=== PATIENT | female | born 1945 | race Caucasian/White ===

== ENCOUNTER 2020-04-20 11:43 | Outpatient (REF) | payer MEDICARE, SELFPAY | END 2020-04-20 11:44 | disposition home or self-care (01) | LOC: HO.LAB 11:43 | PROVIDERS: PCP Internal Medicine; Visit Provider Internal Medicine | DX: Z20.828 Contact with and (suspected) exposure to other viral communicable diseases (principal) | CPT/HCPCS: 87635 ==

== ENCOUNTER 2020-12-17 09:28 | Outpatient (REF) | payer MEDICARE, SELFPAY ==
[2020-12-17 10:47] LABS: MANUAL DIFF FLAG NO
[2020-12-17 10:53] LABS: Basophils Absolute Auto 0.1 X10*3/uL (0.0-0.2); Basophils Percent Auto 0.7 % (0-2); Eosinophils Absolute Auto 0.3 X10*3/uL (0.0-0.4); Eosinophils Percent Auto 3.3 % (0-4); Hematocrit 45.8 % (37-47); Hemoglobin 14.6 g/dl (12.0-16.0); Imm Gran Abs Auto 0.03 X10*3/uL (0.00-0.03); Imm Gran Pct Auto 0.4 % (0.0-0.4); Lymphocytes Absolute Auto 1.5 X10*3/uL (1.2-4.9); Mean Corpuscular HGB Conc 31.9 g/dl (31.0-35.0); Mean Corpuscular Hemoglobin 28.4 pg (27.0-33.0); Mean Corpuscular Volume 89.1 fL (80-98); Mean Platelet Volume 10.3 fL (9.4-12.3); Monocytes Absolute Auto 0.8 X10*3/uL (0.1-1.2); Monocytes Percent Auto 9.8 % (2-11); Neutrophils Absolute Auto 5.6 X10*3/uL (2.0-8.3); Neutrophils Percent Auto 67.8 % (45-73); Platelet Count 285 X10*3/uL (160-400); Red Blood Count 5.14 X10*6/uL (4.20-5.50); Red Cell Distribution Width 13.5 % (11.0-16.0); White Blood Count 8.2 X10*3/uL (4.8-10.8)
[2020-12-17 11:10] LABS: Glucose Urine UA NEG (NEG); Leukocyte Esterase Urine NEG (NEG); Nitrite Urine NEG (NEG); PH 6.5 (5.0-8.0); Urine Blood 3+ (NEG); Urine Ketones NEG (NEG); Urine Protein 1+ MG/DL (NEG-TRACE)
[2020-12-17 11:15] LABS: Appearance Urine HAZY; Color Urine AMBER
[2020-12-17 11:21] LABS: Alanine Aminotransferase 19 U/L (0-31); Albumin Level 3.7 g/dL (3.5-5.0); Alkaline Phosphatase 94 U/L (39-117); Anion Gap 10 (12-20); Aspartate Amino Transferase 17 U/L (5-31); Bilirubin Total 0.5 mg/dL (0.0-1.0); Blood Urea Nitrogen 19 mg/dL (9-16); Calcium 8.9 mg/dL (8.4-10.2); Carbon Dioxide 33 mmol/L (22-29); Chloride 103 mmol/L (96-108); Cholesterol 152 mg/dL; Estimated Glomerular Filt Rate > 60; Glucose Fasting 101 mg/dL (60-99); HDL Cholesterol 50 mg/dL; LDL Cholesterol Calculated 86 mg/dl; Potassium 4.3 mmol/L (3.3-5.1); Sodium 142 mmol/L (135-145); Total Protein 6.6 g/dL (6.5-8.0); Triglycerides 80 mg/dL
[2020-12-17 12:05] LABS: Bacteria Urine 4+ /LPF; RBC Urine 50-75 /HPF (0); Renal Epithelial Cells Urine 1+ /LPF; Squamous Epithelial Cell Urine 2+ /LPF
== END 2020-12-17 09:29 | disposition home or self-care (01) ==
LOC: HO.WFDLDS 09:28
PROVIDERS: Visit Provider Internal Medicine
DX: Z13.89 Encounter for screening for other disorder (principal)
CPT/HCPCS: 36415; 80053; 80061; 81001; 85025

== ENCOUNTER 2020-12-20 07:42 | Outpatient (REF) | payer MEDICARE, SELFPAY ==
[2020-12-20 10:38] LABS: Urine Cytology See Pathology rpt
== END 2020-12-20 07:43 | disposition home or self-care (01) ==
LOC: HO.WFDLDS 07:42
PROVIDERS: Visit Provider Internal Medicine
DX: E78.00 Pure hypercholesterolemia, unspecified (principal); N95.2 Postmenopausal atrophic vaginitis; R31.9 Hematuria, unspecified
CPT/HCPCS: 88112

== ENCOUNTER → 2021-01-03 13:16 | Outpatient (BNVA) | payer MEDICARE, SELFPAY | PROVIDERS: PCP Internal Medicine; Visit Provider Urology | DX: C67.9 Malignant neoplasm of bladder, unspecified (principal) | CPT/HCPCS: Q3014 ==

== ENCOUNTER 2021-01-28 09:04 | Day surgery (SDC) | payer MEDICARE, SELFPAY ==
--- NOTE | 2021-01-25 10:04 | HO.ANESPROP2 ---
Documented by User: Lacey Nithya 01/25/21 10:07 HPI - Anesthesia Eval Consult details Narrative: 75yo F for TUR Bladder Tumor with Gemcitabine Installation & Bilateral Retrograde No medical hx available from Urology office. Unable to reach patient by phone. [facility] Active Problems Active Problems: All Active Problems (Updated 01/17/21 @ 14:00 by Vivek Zamudio MD) UTI (urinary tract infection), bacterial (Acute) Bladder cancer (Acute) Social History Social History Patient Tobacco Use Status: Former Tobacco user Use of substances other than those prescribed or required for medical reasons: No Have you been hit, kicked, punched, or otherwise hurt by someone within the past year? If so, by whom?: No Are you DNR?: No Advance Directives: No Advance Directives Information Provided: Yes Meds Allergies Allergy/AdvReac Type Severity Reaction Status Date / Time No Known Allergies Allergy Verified 01/03/21 13:28 Exam Exam Date and Time: January 25, 2021 1004 Pertinent Lab Results Pertinent Lab Results: Laboratory Tests 12/17/20 12/17/20 09:45 09:45 WBC 8.2 Hgb 14.6 Hct 45.8 Plt Count 285 Sodium 142 Potassium 4.3 Chloride 103 Carbon Dioxide 33 H BUN 19 H Creatinine 0.80 Documented by User: Natacha Aguilar 01/28/21 10:33 [facility] Social History Social History Patient Tobacco Use Status: Former Tobacco user Use of substances other than those prescribed or required for medical reasons: No Have you been hit, kicked, punched, or otherwise hurt by someone within the past year? If so, by whom?: No Are you DNR?: No Advance Directives: No Advance Directives Information Provided: Yes Meds Allergies Allergy/AdvReac Type Severity Reaction Status Date / Time No Known Allergies Allergy Verified 01/03/21 13:28 Exam Airway Mallampati Class: II TM Dist: >3cm Neck ROM: Full Assessment and Plan Assessment Anesthesia Assessment: Anesthesia Plan Discussed and Chart Reviewed Final Anesthetic Review NPO: Yes ASA Class: III Final Preanesthetic Review: No Changes in Pt Med Stat, Meds/Allgs Chart Reviewed, Consent Obtained/Reviewed and Anes Risks/Benef Reviewed Patient Risk: Intermediate Procedure Risk: Low Assessment/Block/Sedation in SS: Assess/Block/Sedation-SS Anesthetic Plan Anesthetic Plan: GA Disposition: Standard PACU
[2021-01-28] VITALS (13 sets, daily range): BP systolic 113–165; BP diastolic 57–96; PULSE 61–85; RESP 14–18; TEMP 36.1–36.7; O2SAT 92–98; BMI 42.7
--- NOTE | ~2021-01-28 | FL_ITS ---
EXAMINATION: XR FLUOROSCOPY WITH IMAGES CLINICAL INFORMATION: TURBT. COMPARISON: None. TECHNIQUE: Fluoroscopy performed by Dr. Vivek Zamudio Fluoroscopy time: 0.3 minutes DAP: 6.85 mGycm2 Images: 2 FINDINGS: There is contrast opacifying bilateral pelvicalyceal systems. There is a small filling defects seen at left UVJ likely gas bubbles or small stones. No additional images obtained. FL/FL guidance in OR IMPRESSION: Fluoroscopy was provided to Dr. Vivek Zamudio during retrograde pyelogram exam.
[2021-01-28] MEDS: Lactated Ringers 1,000 ML 50 ML IVCONT (10:34)
[2021-01-28] MEDS: levoFLOXacin 500 MG TABLET PO (10:38)
--- NOTE | 2021-01-28 10:49 | MHC.SHP ---
Pre-Procedural Eval Section A Date of Service: 01/28/21 Section B Chief Complaint: malignant neoplasm of bladder Details of Present Illness: Bladder cancer here for TURBT with bilateral retrograde in gemcitabine installation Relevant Family History (Specify if Yes): No Relevant Social History: None Present Medications: see Short Stay Collaborative assessment Medical History: No relevant PMH History of Previous Operations: No relevant previous surgery Allergies: Allergies Allergy/AdvReac Type Severity Reaction Status Date / Time No Known Allergies Allergy Verified 01/03/21 13:28 Plan I have reviewed the history and physical and performed a pertinent physical examination on my patient. No changes have occurred unless specified.
--- NOTE | 2021-01-28 12:37 | P.OP_ITS ---
Operative Note Operative Note Date of Service: 01/28/21 Narrative: PreOperative Diagnosis: bladder cancer Post Operative Diagnosis: bladder cancer Procedure: TURBT large and Gemcitabine installation, with bilateral retrograde examination Surgeon: Dr Vivek Zamudio Anesthesia: general Indications for procedure: Is a 75-year-old female. Presented after having an episode hematuria. PCP had perform CT scan which showed a mass on the right wall of the bladder with no hydronephrosis. Scheduled for TURBT with gemcitabine induction without cystoscopy in the office Procedure: After informed consent was verified the patient was brought to the operating room and placed in a supine position. Anesthesia was administered per protocol. The patient was placed in a modified dorsal lithotomy position and prepped and draped in a sterile fashion. Safety pause time-out was performed. Antibiotics were confirmed. A 22 Australian cystoscope inserted per urethra. The bladder was examined in its entirety. Both ureteric orifices normal position. The tumor was present on the right side wall extending from 1 cm above ureteric orifice up to the 12 o'clock position. It broadly covered most of the right sidewall. A 26 Australian continuous flow resectoscope was inserted per urethra. The visual obturator was used in order to minimize potential for urethral damage. Using the bipolar resectoscope and the Olympus narrow band imaging camera the lesion was resected. Edges were fulgurated. She had a sciatic nerve reflex during the 1st part of the procedure so underwent paralytic anesthetic. The lesion was approximately 5 cm in nature At completion of resection the 22 Australian cystoscope was placed. Bilateral retrogrades were performed. No filling defect was seen. At the completion of the procedure the bladder was irrigated. The cystoscope was removed. A [address] Muir catheter was inserted into the bladder. 10 cc was placed in the balloon. 2 g of gemcitabine in 100 cc of normal saline was instilled into the bladder. the flow from the catheter was left clamped. The inflow to the catheter was attached to a 3 L normal saline bag. The patient tolerated the procedure well. They were extubated in the operating room and transferred in stable condition to the recovery area. Gemcitabine will remain in the bladder for 1 hour. At the completion of 1 hour the clamp will be removed. The gemcitabine will be allowed to egress to the urine collection bag. The 3 L bag of normal saline will be run at maximum rate through the bladder in order to dilute any residual gemcitabine. The sciatic reflex did mean that there was a deeper part of the resection on the right sidewall into fat underlying the bladder. Decision was made to leave the Muir catheter for 2-3 days. Pathology: Bladder tumor Drains: Muir catheter
[2021-01-28] MEDS: fentaNYL citrate/PF 100 MCG/2 ML VIAL 50 MCG IVPUSH ×2 (12:47→12:58)
== END 2021-01-28 14:38 | disposition home or self-care (01) ==
PROVIDERS: PCP Internal Medicine; Visit Provider Urology
PROC: 0TBB8ZZ Excision of Bladder, Via Natural or Artificial Opening Endoscopic (ICD-10-PCS; CPT 52235; principal; 2021-01-28 11:40)
DX: C67.9 Malignant neoplasm of bladder, unspecified (principal); R31.0 Gross hematuria; Z87.891 Personal history of nicotine dependence
CPT/HCPCS: 52235; 51720; 88307; J0330; J1100; J2250; J2405; J3010; J9201; Q9967

== ENCOUNTER → 2021-01-30 13:01 | Outpatient (BNVA) | payer MEDICARE, SELFPAY | PROVIDERS: PCP Internal Medicine; Visit Provider Urology | DX: Z48.3 Aftercare following surgery for neoplasm (principal); C67.9 Malignant neoplasm of bladder, unspecified; N28.89 Other specified disorders of kidney and ureter | CPT/HCPCS: 99212 ==

== ENCOUNTER → 2021-02-06 14:45 | Outpatient (BNVA) | payer MEDICARE, SELFPAY | PROVIDERS: PCP Internal Medicine; Visit Provider Urology | CPT/HCPCS: Q3014 ==

== ENCOUNTER → 2021-03-27 11:46 | Outpatient (BNVA) | payer MEDICARE, SELFPAY | PROVIDERS: PCP Internal Medicine; Visit Provider Urology ==

== ENCOUNTER → 2021-03-28 10:33 | Outpatient (BNVA) | payer MEDICARE, SELFPAY | PROVIDERS: PCP Internal Medicine; Visit Provider Urology | DX: C67.9 Malignant neoplasm of bladder, unspecified (principal); N28.89 Other specified disorders of kidney and ureter | CPT/HCPCS: Q3014 ==

== ENCOUNTER 2021-04-18 10:35 | Outpatient (REF) | payer MEDICARE, SELFPAY ==
[2021-04-18 14:10] LABS: Blood Urea Nitrogen 16 mg/dL (9-16); Estimated Glomerular Filt Rate > 60
== END 2021-04-18 10:36 | disposition home or self-care (01) ==
LOC: HO.WFDLDS 10:35
PROVIDERS: Visit Provider Urology
DX: R39.15 Urgency of urination (principal); N28.89 Other specified disorders of kidney and ureter
CPT/HCPCS: 36415; 82565; 84520

== ENCOUNTER 2021-04-19 08:08 | Outpatient (REF) | payer MEDICARE, SELFPAY | END 2021-04-19 08:09 | disposition home or self-care (01) | LOC: HO.MRI 08:08 | PROVIDERS: PCP Internal Medicine; Visit Provider Urology | DX: Z13.89 Encounter for screening for other disorder (principal) ==

== ENCOUNTER 2021-04-22 06:10 | Day surgery (SDC) | payer MEDICARE, SELFPAY ==
[2021-04-12 19:27] VITALS: BMI 42.5
--- NOTE | 2021-04-18 13:22 | P.CONAN_ITS ---
Documented by User: Lacey Barriga NP 04/18/21 13:24 HPI - Anesthesia Eval Consult details Narrative: 75yo F for TUR Bladder Tumor s/p TURBT 01/2021 with GA-LMA 4 PMFSH Active Problems Active Problems: All Active Problems (Updated 04/12/21 @ 19:24 by Heather Baeza RN) Bladder cancer (Acute) UTI (urinary tract infection), bacterial (Acute) Renal mass (Acute) Past Medical History Medical History (Updated 04/22/21 @ 07:20 by Estella Mesa MD) Asthma High cholesterol Hypertension Mammary abscess Obesity Sleep apnea Family History Family History Father Prostate cancer Myocardial infarction Mother Colon cancer Uterine cancer Surgical History Surgical History H/O hernia repair H/O: hysterectomy History of breast surgery Hx of appendectomy Social History Social History Patient Tobacco Use Status: Former Tobacco user Tobacco use type: Cigarette Years Smoked: 20 Use of substances other than those prescribed or required for medical reasons: No Are you DNR?: No Advance Directives: No Advance Directives Information Provided: No Advance Directives on File: No Recently lost weight without trying: No Nutrition Risks: No Nutritional Risk Patient : No Meds Allergies Allergy/AdvReac Type Severity Reaction Status Date / Time Penicillins AdvReac Mild hives Verified 04/16/21 08:24 Home Medications Medication Instructions Recorded Confirmed Last Taken Type fluticasone furoate 200 1 ea INHALATION DAILY PRN 02/06/21 04/12/21 Unknown History mcg-vilanterol 25 mcg/dose inhalation powder (Breo Ellipta) pravastatin 40 mg tablet 40 mg PO BEDTIME 02/06/21 04/12/21 Unknown History valsartan 320 1 tab PO DAILY 02/06/21 04/22/21 04/22/21 05:00 History mg-hydrochlorothiazide 25 mg tablet Vitamin D3 1 tab PO DAILY 03/05/21 04/12/21 Unknown History Exam Exam Date and Time: April 18, 2021 1322 Height,Weight and Vital Signs: Height 5 ft 5 in Weight 116 kg Pertinent Lab Results Pertinent Lab Results: Laboratory Tests ? 12/17/20 12/17/20 ? 09:45 09:45 WBC ?8.2 ? Hgb ?14.6 ? Hct ?45.8 ? Plt Count ?285 ? Sodium ? ?142 Potassium ? ?4.3 Chloride ? ?103 Carbon Dioxide ? ?33 H BUN ? ?19 H Creatinine ? ?0.80 Assessment and Plan Assessment Anesthesia Assessment: Chart Reviewed Documented by User: Estella Mesa MD 04/22/21 08:25 [facility] Past Medical History Medical History (Updated 04/22/21 @ 07:20 by Estella Mesa MD) Asthma High cholesterol Hypertension Mammary abscess Obesity Sleep apnea Family History Family History Father Prostate cancer Myocardial infarction Mother Colon cancer Uterine cancer Family history of problems with anesthesia: No Surgical History Surgical History H/O hernia repair H/O: hysterectomy History of breast surgery Hx of appendectomy History of Problems with Anesthesia: No Social History Social History Patient Tobacco Use Status: Former Tobacco user Tobacco use type: Cigarette Years Smoked: 20 Use of substances other than those prescribed or required for medical reasons: No Are you DNR?: No Advance Directives: No Advance Directives Information Provided: No Advance Directives on File: No Recently lost weight without trying: No Nutrition Risks: No Nutritional Risk Patient : No Meds Allergies Allergy/AdvReac Type Severity Reaction Status Date / Time Penicillins AdvReac Mild hives Verified 04/16/21 08:24 Home Medications Medication Instructions Recorded Confirmed Last Taken Type fluticasone furoate 200 1 ea INHALATION DAILY PRN 02/06/21 04/12/21 Unknown History mcg-vilanterol 25 mcg/dose inhalation powder (Breo Ellipta) pravastatin 40 mg tablet 40 mg PO BEDTIME 02/06/21 04/12/21 Unknown History valsartan 320 1 tab PO DAILY 02/06/21 04/22/21 04/22/21 05:00 History mg-hydrochlorothiazide 25 mg tablet Vitamin D3 1 tab PO DAILY 03/05/21 04/12/21 Unknown History Exam Height,Weight and Vital Signs: Height 5 ft 5 in Weight 116 kg Vital Signs: T 97.3 BP 151/65 HR 68 RR 20 SpO2 94% Airway Mallampati Class: III TM Dist: >3cm Neck ROM: Full Loose/Missing/Broken Teeth: No (Dental implant) Heart: RRR Lungs: CTAB Assessment and Plan Assessment Anesthesia Assessment: Anesthesia Plan Discussed Final Anesthetic Review Family History of Problems with Anesthesia: No History of Problems with Anesthesia: No NPO: Yes ASA Class: III Final Preanesthetic Review: No Changes in Pt Med Stat, Meds/Allgs Chart Reviewed, Consent Obtained/Reviewed and Anes Risks/Benef Reviewed Patient Risk: Intermediate Procedure Risk: Low Assessment/Block/Sedation in SS: Assess/Block/Sedation-SS Anesthetic Plan Anesthetic Plan: GA Disposition: Standard PACU
[2021-04-22] VITALS (7 sets, daily range): BP systolic 103–151; BP diastolic 42–68; PULSE 63–76; RESP 16–20; TEMP 36.3–36.8; O2SAT 93–99
[2021-04-22] MEDS: Lactated Ringers 1,000 ML 100 ML IVCONT (06:59)
--- NOTE | 2021-04-22 07:27 | MHC.SHP ---
Pre-Procedural Eval Section A Date of Service: 04/22/21 Section B Chief Complaint: malignant neoplasm of bladder Details of Present Illness: prior TURBT - restaging after immunotherapy induction Relevant Social History: None Present Medications: see Short Stay Collaborative assessment Medical History: Significant History History of Previous Operations: Relevant previous surgery/procedure and date(s) Allergies: Allergies Allergy/AdvReac Type Severity Reaction Status Date / Time Penicillins AdvReac Mild hives Verified 04/16/21 08:24 Review of Systems Sugical H&P ROS: Negative: Constitution, Cardiovascular, Respiratory, Neurological, Psychiatric, Hem-Onc, Allergic/Immunologic, Gastrointestinal, Genitourinary, Musculoskeletal, Integumentary, Endocrine and Eyes/Ears/Nose/Throat Exam Surgical H&P Exam: Normal: HEENT, Normal: Heart, Normal: Lungs, Normal: Extremities, Normal: Abdomen, Normal: Skin and Normal: Neurological Plan Diagnosis/Plan: Unchanged (cysto, bladder biopsy and fulgeration) I have reviewed the history and physical and performed a pertinent physical examination on my patient. No changes have occurred unless specified.
[2021-04-22] MEDS: levoFLOXacin 500 MG TABLET PO (07:29)
--- NOTE | 2021-04-22 08:06 | W.PM.OPN ---
Operative Note Operative Note Date of Service: 04/22/21 Narrative: PreOperative Diagnosis: Bladder cancer Post Operative Diagnosis: Bladder cancer Procedure: Cystoscopy bladder biopsy and fulguration Surgeon: Dr Vivek Zamudio Anesthesia: General Indications for procedure: High-grade bladder cancer February 2021. Did induction immunotherapy. Here for restaging under anesthesia. Procedure: After informed consent was verified the patient was brought to the operating room and placed in a supine position. Anesthesia was administered per protocol. Patient was placed in modified dorsal lithotomy position and prepped and draped in a sterile fashion. Safety pause time-out was performed. Cystoscopy was performed. Bladder appeared to have a good response to immunotherapy. Bladder biopsies around the 2 prior areas of resection with taken. Fulguration was performed. Bladder was emptied. She tolerated procedure well was extubated in operating room transferred in stable condition to the recovery area. Pathology: Pathology bladder biopsy Drains: None
[2021-04-22] MEDS: Phenazopyridine HCL 100 MG TABLET PO (08:48)
[2021-04-22] MEDS: Acetaminophen 325 MG TABLET 650 MG PO (10:05)
--- NOTE | 2021-04-22 10:40 | PC.NURSE ---
COMPUTERS DOWN. SOME WRITTEN INSTRUCTIONS GIVEN TO PATIENT BY HAND TURNER.
== END 2021-04-22 10:25 | disposition home or self-care (01) ==
PROVIDERS: PCP Internal Medicine; Visit Provider Urology
PROC: 0TBB8ZZ Excision of Bladder, Via Natural or Artificial Opening Endoscopic (ICD-10-PCS; CPT 52224; principal; 2021-04-22 07:30)
DX: C67.9 Malignant neoplasm of bladder, unspecified (principal); N28.89 Other specified disorders of kidney and ureter; N30.90 Cystitis, unspecified without hematuria; R31.0 Gross hematuria; R39.15 Urgency of urination; Z88.0 Allergy status to penicillin; J45.909 Unspecified asthma, uncomplicated; I10 Essential (primary) hypertension; Z79.51 Long term (current) use of inhaled steroids; Z79.899 Other long term (current) drug therapy; Z87.891 Personal history of nicotine dependence
CPT/HCPCS: 52224; 88305; 88307; J1100; J2250; J2405; J3010

== ENCOUNTER 2021-05-07 09:44 | Outpatient (REF) | payer MEDICARE, SELFPAY ==
[2021-05-07 17:28] LABS: Urine Cytology See Pathology rpt
== END 2021-05-07 09:45 | disposition home or self-care (01) ==
LOC: HO.LAB 09:44
PROVIDERS: PCP Internal Medicine; Visit Provider Urology
DX: C67.9 Malignant neoplasm of bladder, unspecified (principal); N39.0 Urinary tract infection, site not specified; B96.89 Other specified bacterial agents as the cause of diseases classified elsewhere; N28.89 Other specified disorders of kidney and ureter
CPT/HCPCS: 88112; 99212

== ENCOUNTER 2021-06-17 09:42 | Outpatient (REF) | payer MEDICARE, SELFPAY ==
[2021-06-17 10:06] LABS: MANUAL DIFF FLAG NO
[2021-06-17 10:07] LABS: Basophils Percent Auto 0.4 % (0-2); Eosinophils Absolute Auto 0.2 X10*3/uL (0.0-0.4); Eosinophils Percent Auto 2.5 % (0-4); Hematocrit 45.2 % (37.0-47.0); Hemoglobin 14.5 g/dl (12.0-16.0); Imm Gran Abs Auto 0.02 X10*3/uL (0.00-0.03); Imm Gran Pct Auto 0.3 % (0.0-0.4); Lymphocytes Absolute Auto 1.2 X10*3/uL (1.2-4.9); Lymphocytes Percent Auto 16.4 % (20-40); Mean Corpuscular HGB Conc 32.1 g/dl (31.0-35.0); Mean Corpuscular Hemoglobin 28.6 pg (27.0-33.0); Mean Corpuscular Volume 89.2 fL (80.0-98.0); Mean Platelet Volume 9.7 fL (9.4-12.3); Monocytes Absolute Auto 0.8 X10*3/uL (0.1-1.2); Monocytes Percent Auto 10.3 % (2-11); Neutrophils Absolute Auto 5.3 x10*3/uL (2.0-8.3); Neutrophils Percent Auto 70.1 % (45-73); Platelet Count 245 X10*3/uL (160-400); Red Blood Count 5.07 X10*6/uL (4.20-5.50); Red Cell Distribution Width 13.1 % (11.0-16.0); White Blood Count 7.5 X10*3/uL (4.8-10.8)
[2021-06-17 10:43] LABS: Alanine Aminotransferase 22 U/L (0-31); Albumin Level 3.7 g/dL (3.5-5.0); Alkaline Phosphatase 91 U/L (39-117); Anion Gap 11 (12-20); Aspartate Amino Transferase 20 U/L (5-31); Bilirubin Total 0.2 mg/dL (0.0-1.0); Blood Urea Nitrogen 15 mg/dL (9-16); Calcium 9.5 mg/dL (8.4-10.2); Carbon Dioxide 31 mmol/L (22-29); Chloride 102 mmol/L (96-108); Cholesterol 185 mg/dL; Estimated Glomerular Filt Rate > 60; Glucose Fasting 93 mg/dL (60-99); HDL Cholesterol 52 mg/dL; LDL Cholesterol Calculated 104 mg/dl; Potassium 4.1 mmol/L (3.3-5.1); Sodium 140 mmol/L (135-145); Total Protein 6.8 g/dL (6.5-8.0); Triglycerides 148 mg/dL
[2021-06-17 11:04] LABS: Thyroid Stimulating Hormone 3.05 uIU/mL (0.32-4.0)
== END 2021-06-17 09:43 | disposition home or self-care (01) ==
LOC: HO.10HDL 09:42
PROVIDERS: Visit Provider Internal Medicine
DX: E78.00 Pure hypercholesterolemia, unspecified (principal); G47.33 Obstructive sleep apnea (adult) (pediatric); I10 Essential (primary) hypertension; Z86.010 Personal history of colon polyps
CPT/HCPCS: 36415; 80053; 80061; 84443; 85025

== ENCOUNTER 2021-08-02 09:58 | Outpatient (REF) | payer MEDICARE, SELFPAY ==
[2021-08-05 11:37] LABS: Urine Cytology See Pathology rpt
== END 2021-08-02 09:59 | disposition home or self-care (01) ==
LOC: HO.LAB 09:58
PROVIDERS: Visit Provider Urology
DX: C67.9 Malignant neoplasm of bladder, unspecified (principal)
CPT/HCPCS: 52000; 88112; 99212

== ENCOUNTER 2021-10-31 09:06 | Outpatient (REF) | payer MEDICARE, SELFPAY ==
[2021-10-31 12:24] LABS: Urine Cytology See Pathology rpt
== END 2021-10-31 09:07 | disposition home or self-care (01) ==
LOC: HO.LAB 09:06
PROVIDERS: PCP Internal Medicine; Visit Provider Urology
DX: C67.9 Malignant neoplasm of bladder, unspecified (principal); Z87.891 Personal history of nicotine dependence
CPT/HCPCS: 52000; 88112; 99212

== ENCOUNTER 2022-01-30 09:02 | Outpatient (REF) | payer MEDICARE, SELFPAY ==
[2022-01-30 16:36] LABS: Urine Cytology See Pathology rpt
== END 2022-01-30 09:03 | disposition home or self-care (01) ==
LOC: HO.LAB 09:02
PROVIDERS: Visit Provider Urology
DX: C67.9 Malignant neoplasm of bladder, unspecified (principal)
CPT/HCPCS: 52000; 88112; 99212

== ENCOUNTER 2022-02-10 09:50 | Outpatient (REF) | payer MEDICARE, SELFPAY ==
[2022-02-10 10:21] LABS: MANUAL DIFF FLAG NO
[2022-02-10 10:34] LABS: Basophils Percent Auto 0.5 % (0-2); Eosinophils Absolute Auto 0.2 X10*3/uL (0.0-0.4); Eosinophils Percent Auto 3.3 % (0-4); Hematocrit 44.3 % (37.0-47.0); Hemoglobin 14.2 g/dl (12.0-16.0); Imm Gran Abs Auto 0.02 X10*3/uL (0.00-0.03); Imm Gran Pct Auto 0.3 % (0.0-0.4); Lymphocytes Absolute Auto 1.2 X10*3/uL (1.2-4.9); Lymphocytes Percent Auto 19.5 % (20-40); Mean Corpuscular HGB Conc 32.1 g/dl (31.0-35.0); Mean Corpuscular Hemoglobin 28.1 pg (27.0-33.0); Mean Corpuscular Volume 87.7 fL (80.0-98.0); Mean Platelet Volume 9.7 fL (9.4-12.3); Monocytes Absolute Auto 0.5 X10*3/uL (0.1-1.2); Monocytes Percent Auto 8.3 % (2-11); Neutrophils Absolute Auto 4.2 x10*3/uL (2.0-8.3); Neutrophils Percent Auto 68.1 % (45-73); Platelet Count 242 X10*3/uL (160-400); Red Blood Count 5.05 X10*6/uL (4.20-5.50); Red Cell Distribution Width 13.8 % (11.0-16.0); White Blood Count 6.1 X10*3/uL (4.8-10.8)
[2022-02-10 11:22] LABS: Alanine Aminotransferase 15 U/L (0-31); Albumin Level 3.6 g/dL (3.5-5.0); Alkaline Phosphatase 96 U/L (39-117); Anion Gap 13 (12-20); Aspartate Amino Transferase 16 U/L (5-31); Bilirubin Total 0.5 mg/dL (0.0-1.0); Blood Urea Nitrogen 17 mg/dL (9-16); Calcium 8.7 mg/dL (8.4-10.2); Carbon Dioxide 31 mmol/L (22-29); Chloride 102 mmol/L (96-108); Cholesterol 187 mg/dL; Estimated Glomerular Filt Rate > 60; Glucose Fasting 117 mg/dL (60-99); HDL Cholesterol 46 mg/dL; LDL Cholesterol Calculated 125 mg/dl; Potassium 4.1 mmol/L (3.3-5.1); Sodium 142 mmol/L (135-145); Total Protein 6.6 g/dL (6.5-8.0); Triglycerides 83 mg/dL
== END 2022-02-10 09:51 | disposition home or self-care (01) ==
LOC: HO.10HDL 09:50
PROVIDERS: Visit Provider Internal Medicine
DX: E78.00 Pure hypercholesterolemia, unspecified (principal); I10 Essential (primary) hypertension; Z86.010 Personal history of colon polyps
CPT/HCPCS: 36415; 80053; 80061; 85025

== ENCOUNTER 2022-05-02 09:10 | Outpatient (REF) | payer MEDICARE, SELFPAY | END 2022-05-02 09:11 | disposition home or self-care (01) | LOC: HO.LAB 09:10 | PROVIDERS: Visit Provider Urology | DX: C67.9 Malignant neoplasm of bladder, unspecified (principal); N28.89 Other specified disorders of kidney and ureter | CPT/HCPCS: 52000; 88121 ==

== ENCOUNTER 2022-06-04 11:36 | Outpatient (REF) | payer MEDICARE, SELFPAY ==
[2022-06-04 12:50] LABS: Influenza A PCR POSITIVE (Negative); Influenza B PCR NEGATIVE (Negative); Resp Syncy Virus RNA Qual PCR NEGATIVE (Negative); SARS COV2 PCR INHOUSE NEGATIVE (Negative)
== END 2022-06-04 11:37 | disposition home or self-care (01) ==
LOC: HO.LNP 11:36
PROVIDERS: Visit Provider Nurse Practitioner Family
DX: Z20.822 Contact with and (suspected) exposure to COVID-19 (principal); J20.9 Acute bronchitis, unspecified
CPT/HCPCS: 0241U

== ENCOUNTER 2022-07-29 08:52 | Outpatient (REF) | payer MEDICARE, SELFPAY ==
[2022-07-29 17:58] LABS: Urine Cytology See Pathology rpt
== END 2022-07-29 08:53 | disposition home or self-care (01) ==
LOC: HO.LAB 08:52
PROVIDERS: PCP Internal Medicine; Visit Provider Urology
DX: C67.9 Malignant neoplasm of bladder, unspecified (principal)
CPT/HCPCS: 52000; 88112

== ENCOUNTER → 2022-10-29 09:04 | Outpatient (BNVA) | payer MEDICARE, SELFPAY | PROVIDERS: PCP Internal Medicine; Visit Provider Urology | DX: C67.9 Malignant neoplasm of bladder, unspecified (principal) | CPT/HCPCS: 52000; 99212 ==

== ENCOUNTER 2023-01-12 10:31 | Outpatient (REF) | payer MEDICARE, SELFPAY ==
[2023-01-12 14:15] LABS: MANUAL DIFF FLAG NO
[2023-01-12 14:18] LABS: Basophils Absolute Auto 0.1 X10*3/uL (0.0-0.2); Basophils Percent Auto 0.8 % (0-2); Eosinophils Absolute Auto 0.2 X10*3/uL (0.0-0.4); Eosinophils Percent Auto 3.2 % (0-4); Hematocrit 48.3 % (37.0-47.0); Hemoglobin 15.6 g/dl (12.0-16.0); Imm Gran Abs Auto 0.01 X10*3/uL (0.00-0.03); Imm Gran Pct Auto 0.1 % (0.0-0.4); Lymphocytes Absolute Auto 1.5 X10*3/uL (1.2-4.9); Mean Corpuscular HGB Conc 32.3 g/dl (31.0-35.0); Mean Corpuscular Hemoglobin 28.4 pg (27.0-33.0); Mean Corpuscular Volume 87.8 fL (80.0-98.0); Mean Platelet Volume 10.5 fL (9.4-12.3); Monocytes Absolute Auto 0.7 X10*3/uL (0.1-1.2); Monocytes Percent Auto 8.9 % (2-11); Platelet Count 278 X10*3/uL (160-400); Red Cell Distribution Width 13.8 % (11.0-16.0); White Blood Count 7.4 X10*3/uL (4.8-10.8)
[2023-01-12 15:09] LABS: Alanine Aminotransferase 25 U/L (0-31); Albumin Level 3.6 g/dL (3.5-5.0); Alkaline Phosphatase 91 U/L (39-117); Anion Gap 15 (12-20); Aspartate Amino Transferase 25 U/L (5-31); Bilirubin Total 0.6 mg/dL (0.0-1.0); Blood Urea Nitrogen 12 mg/dL (9-16); Calcium 9.7 mg/dL (8.4-10.2); Carbon Dioxide 28 mmol/L (22-29); Chloride 101 mmol/L (96-108); Cholesterol 199 mg/dL; Estimated Glomerular Filt Rate > 60; Glucose Random 91 mg/dL (60-115); HDL Cholesterol 49 mg/dL; LDL Cholesterol Calculated 127 mg/dl; Potassium 4.4 mmol/L (3.3-5.1); Sodium 140 mmol/L (135-145); Total Protein 7.1 g/dL (6.5-8.0); Triglycerides 116 mg/dL
== END 2023-01-12 10:32 | disposition home or self-care (01) ==
LOC: HO.WFDLDS 10:31
PROVIDERS: Visit Provider Internal Medicine
DX: E78.00 Pure hypercholesterolemia, unspecified (principal); G47.33 Obstructive sleep apnea (adult) (pediatric); I10 Essential (primary) hypertension; J45.20 Mild intermittent asthma, uncomplicated
CPT/HCPCS: 36415; 80053; 80061; 85025

== ENCOUNTER 2023-04-30 09:51 | Outpatient (AMB) | payer MEDICARE, SELFPAY ==
--- NOTE | 2023-04-30 10:12 | MHC.OFFVIS ---
Intake Intake Visit Reasons: 6m/cysto(Bladder CA) Intake Note: Patient presents today for a CYSTOSCOPY Procedure: Meds: None Allergies to Antibiotic: No Known Allergies Blood Thinner: None Urinalysis test cleared for Cysto Disposable Uro-G Cystoscope Cannula: Lot: [id number] Exp: 11/16/2024 [employer]ight [employer]keman Required: No Accompanied by: Self / Same As Patient Allergies Penicillins Adverse Reaction (Mild, Verified 10/29/22 09:17) hives HPI HPI Comments History of Present Illness Details Mercedes is a very pleasant female. She is a patient of Dr. Bean. She is seen for the following urologic conditions - bladder cancer - renal cyst Bladder cancer follow-up NAD cystoscopy today 6 month follow-up cysto Great response to bladder therapy Bladder cancer 01/23 - TURBT - high-grade T1 gemcitabine adjuvant therapy Diagnosed by Dr. Zamudio 01/23 TURBT 01/23 high-grade T1 Imaging - 01/23 CT scan with 4.5 cm right bladder sidewall lesion, 2 cm lesion in kidney with mild enhancement Pathology - TURBT - 01/23 - High-Grade T1 - Cytology 10/25 NAD, 01/24 NAD Adjuvant therapy - 02/23 gemcitabine induction 6 weeks, Boost 06/25, 02/24, 09/25 Follow-up surveillance - 04/25 Cysto Bbx - cystitis - 07/27 cysto normal - small area surface inflammation posterior back wall, 10/25 NAD, 01/24 NAD, 10/26 NAD, 04/27 NAD Six month follow-up cystoscopy Renal cyst Initially seen on CT scan with question of bladder mass Imaging 04/25 MRI bilateral renal cyst PFSH Medical History Asthma High cholesterol Hypertension Mammary abscess Obesity Sleep apnea Surgical History H/O hernia repair H/O: hysterectomy History of breast surgery Hx of appendectomy Family History Father Prostate cancer Myocardial infarction Mother Colon cancer Uterine cancer Social History Patient Tobacco Use Status: Former Tobacco user Tobacco use type: Cigarette Years Smoked: 20 Review of Systems Const Denies chills and Denies fever(s) Card Reports no additional complaints and Denies syncope Resp Denies cough GI Denies abdominal pain and Denies heartburn Reports as per HPI and Denies change in libido Neuro Denies syncope Psych Denies change in libido Endo Denies change in libido Physical Exam Const General: cooperative, healthy appearing, comfortable and no acute distress Orientation/consciousness: patient oriented x3 HEENT Face and sinus: Yes normal facial exam Mouth: moist mucous membranes Neck Neck: Yes normal visual inspection, Yes full ROM and Yes trachea midline Chest Chest palpation & inspection: normal inspection of the chest Resp Effort & Inspection: normal respiratory effort, able to speak in complete sentences and no respiratory distress GI Inspection: Yes normal to inspection Back/Spine/Pelvis Cervical Spine: normal cervical lordosis Thoracic/Lumbar Spine: thoracic and lumbar spine normal to inspection Skin General skin exam: no rashes or lesions noted Neuro General: patient oriented x3, gait normal, tone normal and moves all extremities Extrem General: Yes normal to inspection and Yes capillary refill normal Office Procedures Cystoscopy Consent Discussed risk and benefit or proposed procedure with the patient. Information consent for procedure given to the patient. Discussed technical aspects, risks, benefits and alternatives in full. Addressed all of the patient's questions and concerns regarding the procedure. The patient demonstrated knowledge and understanding. They wish to proceed with this procedure. Preparation The patient was prepped in the usual manner. A operations officer afloat was present and in the room. Genitalia was prepped with betadine solution in a sterile manner. Lidocaine Jelly 2% was placed into the urethra and 16Fr flexible Olympus cystoscope was inserted into the meatus after adequate lubrication. Procedure Meatus normal position Urethra normal Bladder examination with retroflexion of cystoscope Bladder Orifices normal shape and position Trigone normal Bladder Capacity medium Trabeculations mild Cellule Formation - Diverticulum Formation - Mucosal Erythema - Bladder Tumor - [id number] DISPOSABLE SCOPE URO-G FLEXIBLE SCOPE Procedure code (CPT) selection complete Office Meds lidocaine HCl 2 % mucosal jelly in applicator Performing Provider: Vivek Zamudio MD [facility] Administered by: Mike Rubalcava LPN on 04/30/23 10:17 Dose Route Admin Location Dispensed Lot Number Expiration Date [facility] Operations Officer Afloat 10 mL intra-urethral 10 mL nitrofurantoin monohydrate/macrocrystals 100 mg capsule Performing Provider: Vivek Zamudio MD Performing Location: [facility] Administered by: Mike Rubalcava LPN on 04/30/23 10:17 Dose Route Admin Location Dispensed Lot Number Expiration Date [employer] Operations Officer Afloat 100 mg PO 1 cap naproxen 500 mg tablet Performing Provider: Vivek Zamudio MD Performing Location: [facility] Administered by: Mike Rubalcava LPN on 04/30/23 10:17 Dose Route Admin Location Dispensed Lot Number Expiration Date [employer] Operations Officer Afloat 500 mg PO 1 tab Results AMB Urinalysis, Automated UA Leukoctes 0 Ib/uL Last Edit by CHLOÉ Boateng on 04/30/23 10:32 UA Nitrite Negative Last Edit by CHLOÉ Boateng on 04/30/23 10:32 UA Urobilinogen 0.2 mg/dL Last Edit by CHLOÉ Boateng on 04/30/23 10:32 UA Protein 15 mg/dL Last Edit by CHLOÉ Boateng on 04/30/23 10:32 UA pH 6.0 Last Edit by Bry Summers Calvin on 04/30/23 10:32 UA Blood 0 Srikanth/uL Last Edit by CHLOÉ Boateng on 04/30/23 10:32 UA Specific [place] 1.020 Last Edit by CHLOÉ Boateng on 04/30/23 10:32 UA Ketone Negative Last Edit by CHLOÉ Boateng on 04/30/23 10:32 UA Bilirubin 0 mg/dL Last Edit by Bry Summers [facility] on 04/30/23 10:32 UA Glucose 0 mg/dL Last Edit by Bry Summers Calvin on 04/30/23 10:32 Results Reviewed Results Reviewed: Laboratory Last Values Urine pH (Auto) 6.0 04/30/23 10:30 Specific [place] (Auto) 1.020 04/30/23 10:30 Urine Protein (Auto) 15 mg/dL 04/30/23 10:30 Glucose (UA)(Auto) 0 mg/dL 04/30/23 10:30 Urine Ketones (Auto) Negative 10/26/23 10:30 Urine Blood (Auto) 0 Srikanth/uL 04/30/23 10:30 Urine Nitrite (Auto) Negative 04/30/23 10:30 Urine Bilirubin (Auto) 0 mg/dL 04/30/23 10:30 Urine Urobilinogen (Auto) 0.2 mg/dL 04/30/23 10:30 Leukocyte Esterase (Auto) 0 Bi/uL 04/30/23 10:30 Assessment & Plan Assessment & Plan (1) Bladder cancer: Comment: Superficial high-grade bladder cancer 01/23 - completed 2 years of intravesical therapy Code(s): C67.9 - Malignant neoplasm of bladder, unspecified Qualifiers: Bladder location: unspecified site Qualified Code(s): C67.9 - Malignant neoplasm of bladder, unspecified Plan Six month follow-up cysto Orders: Orders AMB Cystoscopy Today A49.9 - Bacterial infection, unspecified, C67.9 - Malignant neoplasm of bladder, unspecified, N39.0 - Urinary tract infection, site not specified AMB Urinalysis Automated Today Z13.9 - Encounter for screening, unspecified Patient Instructions: Imaging studies, laboratory and physical exam results were discussed and reviewed in detail. No major barriers to patient understanding were identified. An opportunity to ask questions regarding the treatment plan was provided. All questions were answered. The patient expressed understanding and agreement with the above treatment plan. The patient is aware they should contact our office by phone for worsening of their current condition or the appearance of new urologic symptoms. Compliance is encouraged with any medications and followup testing that is ordered. It is a privilege to participate in the urologic care of your patient. If you have any questions or concerns regarding treatment for the above conditions, or other urologic issues, please do not hesitate to contact me. The office telephone contact is [phone]. This note is constructed using voice recognition software. While every effort has been made to ensure accuracy groundwater monitoring technician errors may have been included. Yours sincerely, Dr Vivek Zamudio MD, [facility] - Urology Providers of Expert, Compassionate Care for the Genitourinary System Coding Level of Care Code Est Pt Level 3 (11819) Diagnoses Malignant neoplasm of urinary bladder, unspecified site C67.9 Bladder location: unspecified site CPT Codes Cystoscopy - CPT: [id number] ([id number])
== END 2023-04-30 10:59 | disposition home or self-care (01) ==
PROVIDERS: Visit Provider Urology
DX: C67.9 Malignant neoplasm of bladder, unspecified (principal); N39.0 Urinary tract infection, site not specified; A49.9 Bacterial infection, unspecified; Z13.9 Encounter for screening, unspecified
CPT/HCPCS: 52000; 99213

== ENCOUNTER → 2023-04-30 09:51 | Outpatient (BNVA) | payer MEDICARE, SELFPAY | PROVIDERS: Visit Provider Urology | DX: C67.9 Malignant neoplasm of bladder, unspecified (principal) | CPT/HCPCS: 52000; 81003; 99212 ==

== ENCOUNTER 2023-10-29 09:02 | Outpatient (AMB) | payer MEDICARE, SELFPAY ==
--- NOTE | 2023-10-29 09:05 | A.OFFVIS_ITS ---
Intake Visit Reasons: 6m/cysto Intake Note: Patient is Present for Cystoscopy Urology Med: Oxybutynin Antibiotic Allergy: Penicillin Blood Thinner: None URO- G Disposable Cystoscope lot: [id number] exp:05/14/2026 Allergies Penicillins Adverse Reaction (Mild, Verified 10/29/23 09:07) hives Medication List - Last Reconciled 10/29/23 by Vivek Zamudio MD fluticasone furoate-vilanterol 200-25 mcg/dose (Breo Ellipta) 1 ea inhalation DAILY PRN oxybutynin chloride 5 mg PO DAILY PRN 5 days pravastatin 40 mg PO BEDTIME valsartan-hydrochlorothiazide 320-25 mg 1 tab PO DAILY [Vitamin D3 1 tab PO DAILY] HPI Comments Details: Mercedes is a very pleasant female. She is a patient of Dr. Bean. She is seen for the following urologic conditions - bladder cancer - renal cyst Six-month follow-up Bladder cancer follow-up NAD cystoscopy today Pending cytology Bladder cancer 01/23 - TURBT - high-grade T1 gemcitabine adjuvant therapy Diagnosed by Dr. Zamudio 01/23 TURBT 01/23 high-grade T1 Imaging - 01/23 CT scan with 4.5 cm right bladder sidewall lesion, 2 cm lesion in kidney with mild enhancement Pathology - TURBT - 01/23 - High-Grade T1 - Cytology 10/25 NAD, 01/24 NAD, 07/28 NAD Adjuvant therapy - 02/23 gemcitabine induction 6 weeks, Boost 06/25, 02/24, 09/25 Follow-up surveillance - 04/25 Cysto Bbx - cystitis - 07/27 cysto normal - small area surface inflammation posterior back wall, 10/25 NAD, 01/24 NAD, 10/26 NAD, 04/27 NAD Six month follow-up cystoscopy Renal cyst Initially seen on CT scan with question of bladder mass Imaging 04/25 MRI bilateral renal cyst PFSH Medical History Asthma High cholesterol Hypertension Mammary abscess Obesity Sleep apnea Surgical History H/O hernia repair H/O: hysterectomy History of breast surgery Hx of appendectomy Family History Father Prostate cancer Myocardial infarction Mother Colon cancer Uterine cancer Social History Patient Tobacco Use Status: Former Tobacco user Tobacco use type: Cigarette Years Smoked: 20 Review of Systems Const Denies chills and Denies fever(s) Card Reports no additional complaints and Denies syncope Resp Denies cough GI Denies abdominal pain and Denies heartburn Reports as per HPI and Denies change in libido Neuro Denies syncope Psych Denies change in libido Endo Denies change in libido Physical Exam Const General: cooperative, healthy appearing, comfortable and no acute distress Orientation/consciousness: patient oriented x3 HEENT Face and sinus: Yes normal facial exam Mouth: moist mucous membranes Neck Neck: Yes normal visual inspection, Yes full ROM and Yes trachea midline Chest Chest palpation & inspection: normal inspection of the chest Resp Effort & Inspection: normal respiratory effort, able to speak in complete sentences and no respiratory distress GI Inspection: Yes normal to inspection Back/Spine/Pelvis Cervical Spine: normal cervical lordosis Thoracic/Lumbar Spine: thoracic and lumbar spine normal to inspection Skin General skin exam: no rashes or lesions noted Neuro General: patient oriented x3, gait normal, tone normal and moves all extremities Extrem General: Yes normal to inspection and Yes capillary refill normal Office Procedures Cystoscopy Consent Discussed risk and benefit or proposed procedure with the patient. Information consent for procedure given to the patient. Discussed technical aspects, risks, benefits and alternatives in full. Addressed all of the patient's questions and concerns regarding the procedure. The patient demonstrated knowledge and understanding. They wish to proceed with this procedure. Preparation The patient was prepped in the usual manner. A newspaper photojournalist was present and in the room. Genitalia was prepped with betadine solution in a sterile manner. Lidocaine Jelly 2% was placed into the urethra and 16Fr flexible Olympus cystoscope was inserted into the meatus after adequate lubrication. Procedure Meatus known position Urethra normal Bladder examination with retroflexion of cystoscope Bladder Orifices normal shape and position Trigone normal Bladder Capacity normal Trabeculations grade 1 Cellule Formation - Diverticulum Formation - Mucosal Erythema immunotherapy changes Bladder Tumor scarring [id number]-[id number] DISPOSABLE SCOPE URO-G FLEXIBLE SCOPE Procedure code (CPT) selection complete Office Meds lidocaine HCl 2 % mucosal jelly in applicator Performing Provider: Vviek Zamudio MD Performing Location: [facility] Administered by: Fiona Still RN on 10/29/23 09:13 Dose Route Admin Location Dispensed Lot Number Expiration Date NDC Garden Worker 10 mL intra-urethral 10 mL nitrofurantoin monohydrate/macrocrystals 100 mg capsule Performing Provider: Vivek Zamudio MD Performing Location: [facility] Administered by: Fiona Still RN on 10/29/23 09:13 Dose Route Admin Location Dispensed Lot Number Expiration Date NDC Garden Worker 100 mg PO 1 cap naproxen 500 mg tablet Performing Provider: Vivek Zamudio MD Performing Location: [facility] Administered by: Fiona Still RN on 10/29/23 09:13 Dose Route Admin Location Dispensed Lot Number Expiration Date NDC Garden Worker 500 mg PO 1 tab Results AMB Urinalysis, Automated UA Leukoctes 0 Bi/uL Last Edit by CHLOÉ Hsu on 10/29/23 09:19 UA Nitrite Negative Last Edit by CHLOÉ Hsu on 10/29/23 09:19 UA Urobilinogen 0.2 mg/dL Last Edit by CHLOÉ Hsu on 10/29/23 09:1 9 UA Protein 15 mg/dL Last Edit by CHLOÉ Hsu on 10/29/23 09:19 UA pH 6.0 Last Edit by CHLOÉ Hsu on 10/29/23 09:19 UA Blood 10 Srikanth/uL Last Edit by CHLOÉ Hsu on 10/29/23 09:19 UA Specific [place] 1.025 Last Edit by CHLOÉ Hsu on 10/29/23 09: 19 UA Ketone Negative Last Edit by CHLOÉ Hsu on 10/29/23 09:19 UA Bilirubin 0 mg/dL Last Edit by CHLOÉ Hsu on 10/29/23 09:19 UA Glucose 0 mg/dL Last Edit by CHLOÉ Hsu on 10/29/23 09:19 Results Reviewed Results Reviewed: Laboratory Last Values Urine pH (Auto) 6.0 10/29/23 09:08 Specific [place] (Auto) 1.025 10/29/23 09:08 Urine Protein (Auto) 15 mg/dL 10/29/23 09:08 Glucose (UA)(Auto) 0 mg/dL 10/29/23 09:08 Urine Ketones (Auto) Negative 10/29/23 09:08 Urine Blood (Auto) 10 Srikanth/uL 10/29/23 09:08 Urine Nitrite (Auto) Negative 10/29/23 09:08 Urine Bilirubin (Auto) 0 mg/dL 10/29/23 09:08 Urine Urobilinogen (Auto) 0.2 mg/dL 10/29/23 09:08 Leukocyte Esterase (Auto) 0 Bi/uL 10/29/23 09:08 Assessment & Plan Assessment & Plan (1) Bladder cancer: Comment: Superficial high-grade bladder cancer 01/23 - completed 2 years of intravesical therapy Code(s): C67.9 - Malignant neoplasm of bladder, unspecified Category: Medical Qualifiers: Bladder location: unspecified site Qualified Code(s): C67.9 - Malignant neoplasm of bladder, unspecified Plan Continue Q six-month cystoscopy till year 5 Orders: Orders AMB Urinalysis Automated Today Z13.9 - Encounter for screening, unspecified AMB Cystoscopy Today C67.9 - Malignant neoplasm of bladder, unspecified Patient Instructions: Imaging studies, laboratory and physical exam results were discussed and reviewed in detail. No major barriers to patient understanding were identified. An opportunity to ask questions regarding the treatment plan was provided. All questions were answered. The patient expressed understanding and agreement with the above treatment plan. The patient is aware they should contact our office by phone for worsening of their current condition or the appearance of new urologic symptoms. Compliance is encouraged with any medications and followup testing that is ordered. It is a privilege to participate in the urologic care of your patient. If you have any questions or concerns regarding treatment for the above conditions, or other urologic issues, please do not hesitate to contact me. The office telep leandro contact is [phone]. This note is constructed using voice recognition software. While every effort has been made to ensure accuracy public relations director errors may have been included. Yours sincerely, Dr Vivek Zamudio MD, [facility] - Urology Providers of Expert, Compassionate Care for the Genitourinary System Coding Level of Care Code Procedure Only Diagnoses Malignant neoplasm of urinary bladder, unspecified site C67.9 Bladder location: unspecified site CPT Codes Cystoscopy - CPT: 52643-[id number] ([id number])
== END 2023-10-29 09:38 | disposition home or self-care (01) ==
PROVIDERS: PCP Internal Medicine; Visit Provider Urology
DX: C67.9 Malignant neoplasm of bladder, unspecified (principal); Z13.9 Encounter for screening, unspecified
CPT/HCPCS: 52000

== ENCOUNTER → 2023-10-29 09:02 | Outpatient (BNVA) | payer MEDICARE, SELFPAY | PROVIDERS: PCP Internal Medicine; Visit Provider Urology | DX: C67.9 Malignant neoplasm of bladder, unspecified (principal) | CPT/HCPCS: 52000; 81003 ==

== ENCOUNTER 2023-11-17 06:54 | Day surgery (SDC) | payer MEDICARE, SELFPAY ==
[2023-11-13 14:26] VITALS: BMI 44.7
--- NOTE | 2023-11-16 08:53 | HO.ANESPROP2 ---
Documented by User: Lacey Barriga NP 11/16/23 08:54 HPI - Anesthesia Eval Consult details Narrative: 78yo F for Colonoscopy PMFSH Active Problems Active Problems: All Active Problems Acute bronchitis (Acute) Renal mass (Acute) UTI (urinary tract infection), bacterial (Acute) Bladder cancer (Acute) Past Medical History Medical History (Updated 11/13/23 @ 14:27 by Dari Renteria, DIONICIO) Bladder cancer Mammary abscess Sleep apnea High cholesterol Asthma Obesity Hypertension Family History Family History Father Prostate cancer Myocardial infarction Mother Colon cancer Uterine cancer Family history of problems with anesthesia: No Surgical History Surgical History (Updated 11/13/23 @ 14:18 by Dari Renteria, DIONICIO) Hx of cystoscopy History of breast surgery H/O hernia repair H/O: hysterectomy Hx of appendectomy History of Problems with Anesthesia: No Social History Social History (Updated 11/13/23 @ 14:19 by Dari Renteria RN) Patient Tobacco Use Status: Former Tobacco user Tobacco use type: Cigarette Years Smoked: 20 Are you DNR?: No Advance Directives: No Advance Directives Information Provided: Yes Recently lost weight without trying: No Nutrition Risks: No Nutritional Risk Meds Allergies Allergy/AdvReac Type Severity Reaction Status Date / Time Penicillins AdvReac Mild hives Verified 10/29/23 09:07 Home Medications ?Medication ?Instructions ?Recorded ?Confirmed ?Last Taken ?Type fluticasone furoate 200 1 ea inhalation DAILY PRN 02/06/21 11/13/23 Unknown History mcg-vilanterol 25 mcg/dose Shortness Of Breath inhalation powder (Breo Ellipta) pravastatin 40 mg tablet 40 mg PO BEDTIME 02/06/21 11/13/23 Unknown History valsartan 320 1 tab PO DAILY 02/06/21 11/13/23 11/17/23 History mg-hydrochlorothiazide 25 mg tablet albuterol sulfate 90 mcg/actuation 2 puff inhalation QID PRN 11/13/23 11/13/23 Unknown History aerosol inhaler Shortness Of Breath Or Wheezing cholecalciferol (vitamin D3) 10 10 mcg PO DAILY 11/13/23 11/13/23 Unknown History mcg (400 unit) capsule (Vitamin D3) loratadine 10 mg tablet 10 mg PO DAILY 11/13/23 11/13/23 Unknown History Exam Height,Weight and Vital Signs: Height 5 ft 4.75 in Weight 120.837 kg Assessment and Plan Assessment Anesthesia Assessment: Chart Reviewed Final Anesthetic Review Family History of Problems with Anesthesia: No History of Problems with Anesthesia: No Documented by User: Claire Brennan MD 11/17/23 07:36 [facility] Past Medical History Medical History (Updated 11/13/23 @ 14:27 by Dari Renteria RN) Bladder cancer Mammary abscess Sleep apnea High cholesterol Asthma Obesity Hypertension Family History Family History Father Prostate cancer Myocardial infarction Mother Colon cancer Uterine cancer Surgical History Surgical History (Updated 11/13/23 @ 14:18 by Dari Renteria RN) Hx of cystoscopy History of breast surgery H/O hernia repair H/O: hysterectomy Hx of appendectomy Social History Social History (Updated 11/13/23 @ 14:19 by Dari Renteria RN) Patient Tobacco Use Status: Former Tobacco user Tobacco use type: Cigarette Years Smoked: 20 Are you DNR?: No Advance Directives: No Advance Directives Information Provided: Yes Recently lost weight without trying: No Nutrition Risks: No Nutritional Risk Meds Allergies Allergy/AdvReac Type Severity Reaction Status Date / Time Penicillins AdvReac Mild hives Verified 10/29/23 09:07 Home Medications ?Medication ?Instructions ?Recorded ?Confirmed ?Last Taken ?Type fluticasone furoate 200 1 ea inhalation DAILY PRN 02/06/21 11/13/23 Unknown History mcg-vilanterol 25 mcg/dose Shortness Of Breath inhalation powder (Breo Ellipta) pravastatin 40 mg tablet 40 mg PO BEDTIME 02/06/21 11/13/23 Unknown History valsartan 320 1 tab PO DAILY 02/06/21 11/13/23 11/17/23 History mg-hydrochlorothiazide 25 mg tablet albuterol sulfate 90 mcg/actuation 2 puff inhalation QID PRN 11/13/23 11/13/23 Unknown History aerosol inhaler Shortness Of Breath Or Wheezing cholecalciferol (vitamin D3) 10 10 mcg PO DAILY 11/13/23 11/13/23 Unknown History mcg (400 unit) capsule (Vitamin D3) loratadine 10 mg tablet 10 mg PO DAILY 11/13/23 11/13/23 Unknown History Exam Airway Mallampati Class: III TM Dist: >3cm Denture: Upper Assessment and Plan Assessment Anesthesia Assessment: Anesthesia Plan Discussed Final Anesthetic Review NPO: Yes ASA Class: III Final Preanesthetic Review: No Changes in Pt Med Stat, Meds/Allgs Chart Reviewed, Consent Obtained/Reviewed and Anes Risks/Benef Reviewed Patient Risk: Intermediate Procedure Risk: Low Anesthetic Plan Anesthetic Plan: TIVA Disposition: Standard PACU
--- OUTSIDE RECORDS SUMMARY | 2023-11-17 06:57 | XMS_ITS | Patient Health Record ---
Author Organization [facility] Address [address] [place] [id number] Care Team Providers Care Publications Inspector Name Role Phone Ann-Marie Bean Primary Care Provider Dipesh Singletary Jr Unavailable [phone] ALLERGIES Allergen (clinical drug ingredient) Drug/Non Drug Allergy documented on EMR Reaction Allergy Type Onset Date Status Penicillin hives Drug Allergy Active REASON FOR REFERRAL No Information MEDICATIONS Medication SIG (Take, Route, Frequency, Duration) Notes Start Date End Date Status Vitamin D 400 UNIT Orally A ctive Valsartan-hydroCHLOROthiazi de 320-25 MG 1 tablet Orally Once a day for 30 day(s) Active Loratadine 10 MG 1 tablet Orally Once a day for 30 day(s) Active Simvastatin 10 MG 1 tablet in the even ing Orally Once a day Active MiraLax (colon prep) 17 GM/SCOOP mixed with Gatorade or Crystal Light Orally begin at 5:00 p.m. the day before the procedure for 1 day 10/08/2023 Active SOCIAL HISTORY Sex Assigned At : Social History Observation Description Sex Assigned At Unknown Alcohol Screen Question Answer Notes Did you have a drink contain ing alcohol in the past year? Yes How often did you have a dri nk containing alcohol in the past year? Monthly or less (1 point) How many drinks did you have on a typical day when you were drinking in the past year? 1 or 2 drinks (0 point) How often did you have 6 or more drinks on one occasion in the past year? Never (0 point) Points 1 Interpretation Negative PROBLEMS Problem Type ICD Code Onset Dates Problem Status W/U Status Risk SNOMED Code Notes Problem Colon cancer screening (Z12.11) Active confirmed 682608883 Problem FH: colon cancer (Z80.0) Active confirmed [id number] VITAL SIGNS Heart Rate 84 /min 10/08/2023 Height 64.75 in 10/08/2023 Weight 266.4 lbs 10/08/2023 BMI 44.67 kg/m2 10/08/2023 Encounters Encounter Location Date Provider Diagnosis [facility] Out[place] [address] [place] [id number] 11/17/2023 Dipesh Smith Jr [facility] [address] [place] [address] 10/08/2023 Dipesh Smith Jr Colon cancer screening Z12.11 and FH: colon cancer Z80.0 ASSESSMENTS Encounter Date Diagnosis Assessment Notes Treatment Notes Treatment Clinical Notes 10/08/2023 Colon cancer screening (ICD-10 - Z12.11) Colonoscopy material was printed 10/08/2023 FH: colon cancer (ICD-10 - Z80.0) PLAN OF TREATMENT Future Test Test Name Order Date COLONOSCOPY 10/08/2023 Next Appt Details Provider Name:Dipesh morris Jr, 11/17/2023 08:20:00 AM, [address] [place] [address] , [place], [place], [phone], Insurance Providers Payer Name Payer Address Payer Phone Subscriber Number Group Number Insured Name Patient Relationship to Insured Coverage Start Date Coverage End Date MEDICARE OF [place] [address] [place] [address] [id number] NEHEMIAS HAYES Self - patient is the insured [employer] ATT[employer] CLAIMS [address] [place] [address] [id number] NEHEMIAS HAYES Self - patient is the insured MEDICAL (GENERAL) HISTORY Medical History History ICD Code Hypertension Hyperlipidemia asthma Bladder cancer Surgical History Surgery Date(Month/Year) appendectomy hernia repair hysterectomy varicose vein stripping blocked mammory gland 03/2019 Cystoscopy with transurethral bladder tu mor resection 01/2021
[2023-11-17 07:09] VITALS: BP 151/64; PULSE 78; RESP 20; TEMP 36.2; O2SAT 96; BMI 44.8
[2023-11-17] MEDS: Lactated Ringers 1,000 ML 100 ML IVCONT (07:31)
--- NOTE | 2023-11-17 08:06 | P.HPSUR_ITS ---
Pre-Procedural Eval Section A - 24 Hr Update-Section A only Date of Service: 11/17/23 Section B - Complete if H&P > 30 days Chief Complaint: Encounter for screening for malignant neoplasm of Details of Present Illness: see H&P no changes Relevant Family History (Specify if Yes): No Relevant Social History: None Present Medications: see Short Stay Collaborative assessment Medical History: No relevant PMH History of Previous Operations: No relevant previous surgery Allergies: Allergies Allergy/AdvReac Type Severity Reaction Status Date / Time Penicillins AdvReac Mild hives Verified 10/29/23 09:07 Review of Systems Sugical H&P ROS: Negative: Constitution, Cardiovascular, Respiratory, Neurological, Psychiatric, Hem-Onc, Allergic/Immunologic, Gastrointestinal, Genitourinary, Musculoskeletal, Integumentary, Endocrine and Eyes/Ears/ Nose/Throat Exam Surgical H&P Exam: Normal: HEENT, Normal: Heart, Normal: Lungs, Normal: Extremities, Normal: Abdomen, Normal: Skin and Normal: Neurological Plan Diagnosis/Plan: Unchanged I have reviewed the history and physical and performed a pertinent physical examination on my patient. No changes have occurred unless specified. Time Spent With Patient Time: Total time managing care of this patient today ____ minutes.
[2023-11-17 08:45] VITALS: BP 102/32; PULSE 64; RESP 16; TEMP 37; O2SAT 94
--- NOTE | 2023-11-17 08:57 | OP_ITS ---
DATE OF SERVICE: 11/17/2023 SURGEON: Dipesh Smith MD INDICATIONS: Colon cancer screening. PREOPERATIVE DIAGNOSIS: POSTOPERATIVE DIAGNOSIS: PROCEDURE PERFORMED: Colonoscopy to the terminal ileum with biopsy. ESTIMATED BLOOD LOSS: COMPLICATIONS: ANESTHESIA: Monitored anesthesia care. ASSISTANTS: SPECIMENS: DESCRIPTION OF PROCEDURE: A history and physical were performed. The risks and benefits of the procedure were explained to the patient and informed consent was obtained. The patient was placed in the left lateral decubitus position. A digital rectal exam was performed and was found to be normal. The Olympus pediatric video colonoscope was introduced into the rectum and advanced to the cecum. The cecum was identified by transillumination, palpation, identification of ileocecal valve. Examination was performed and the scope was removed. She tolerated the procedure well and was returned to recovery in stable condition. FINDINGS: The terminal ileum was examined and appeared normal. The visualized colonic mucosa was normal. The quality of prep was good. There was a small polyp measuring less than 5 mm at 50 cm from the anal verge. This was removed with biopsy forceps. No other polyps were identified. There was moderate diverticulosis involving the sigmoid. Retroflexed examination showed internal hemorrhoids. IMPRESSION: Colon polyp. RECOMMENDATION: Follow up the biopsy results. MD FREDDY Kwan/MARIAJOSEL / [id number]
[2023-11-17 09:07] VITALS: BP 115/56; PULSE 67; RESP 18; TEMP 37; O2SAT 94
== END 2023-11-17 09:40 | disposition home or self-care (01) ==
PROVIDERS: PCP Internal Medicine; Visit Provider Internal Medicine Gastroenterology
PROC: 0DJD8ZZ Inspection of Lower Intestinal Tract, Via Natural or Artificial Opening Endoscopic (ICD-10-PCS; CPT 45378; principal; 2023-11-17 08:20)
DX: Z12.11 Encounter for screening for malignant neoplasm of colon (principal); D12.6 Benign neoplasm of colon, unspecified; K57.30 Diverticulosis of large intestine without perforation or abscess without bleeding; K64.8 Other hemorrhoids; I10 Essential (primary) hypertension; J45.909 Unspecified asthma, uncomplicated; Z79.899 Other long term (current) drug therapy; Z88.0 Allergy status to penicillin
CPT/HCPCS: 45380; 88305; J2704

== ENCOUNTER 2024-01-12 10:16 | Outpatient (REF) | payer MEDICARE, SELFPAY ==
[2024-01-12 11:08] LABS: MANUAL DIFF FLAG NO
[2024-01-12 11:36] LABS: Basophils Percent Auto 0.6 % (0-2); Eosinophils Absolute Auto 0.2 X10*3/uL (0.0-0.4); Eosinophils Percent Auto 2.2 % (0-4); Hematocrit 48.7 % (37.0-47.0); Hemoglobin 15.7 g/dl (12.0-16.0); Imm Gran Abs Auto 0.02 X10*3/uL (0.00-0.03); Imm Gran Pct Auto 0.3 % (0.0-0.4); Lymphocytes Absolute Auto 1.5 X10*3/uL (1.2-4.9); Lymphocytes Percent Auto 21.5 % (20-40); Mean Corpuscular HGB Conc 32.2 g/dl (31.0-35.0); Mean Corpuscular Hemoglobin 28.5 pg (27.0-33.0); Mean Corpuscular Volume 88.5 fL (80.0-98.0); Mean Platelet Volume 10.3 fL (9.4-12.3); Monocytes Absolute Auto 0.6 X10*3/uL (0.1-1.2); Monocytes Percent Auto 8.4 % (2-11); Neutrophils Absolute Auto 4.8 x10*3/uL (2.0-8.3); Platelet Count 252 X10*3/uL (160-400); Red Cell Distribution Width 13.9 % (11.0-16.0); White Blood Count 7.2 X10*3/uL (4.8-10.8)
[2024-01-12 12:08] LABS: Alanine Aminotransferase 24 U/L (0-31); Albumin Level 3.9 g/dL (3.5-5.0); Alkaline Phosphatase 101 U/L (39-117); Anion Gap 13 (12-20); Aspartate Amino Transferase 21 U/L (5-31); Bilirubin Total 0.5 mg/dL (0.0-1.0); Blood Urea Nitrogen 24 mg/dL (9-16); Calcium 9.5 mg/dL (8.4-10.2); Carbon Dioxide 33 mmol/L (22-29); Chloride 101 mmol/L (96-108); Cholesterol 178 mg/dL (<200); Estimated Glomerular Filt Rate > 60; Glucose Random 88 mg/dL (60-115); HDL Cholesterol 47 mg/dL (>40); LDL Cholesterol Calculated 111 mg/dL (<100); Potassium 3.7 mmol/L (3.3-5.1); Sodium 143 mmol/L (135-145); Total Protein 7.4 g/dL (6.5-8.0); Triglycerides 102 mg/dL (<150)
[2024-01-12 12:24] LABS: Vitamin D 25-OH Total 33.3 ng/mL (>30)
== END 2024-01-12 10:17 | disposition home or self-care (01) ==
LOC: HO.WFDLDS 10:16
PROVIDERS: Visit Provider Internal Medicine
DX: E78.00 Pure hypercholesterolemia, unspecified (principal); G47.33 Obstructive sleep apnea (adult) (pediatric); I10 Essential (primary) hypertension; Z86.010 Personal history of colon polyps
CPT/HCPCS: 36415; 80053; 80061; 82306; 85025

== ENCOUNTER 2024-05-12 09:03 | Outpatient (AMB) | payer MEDICARE, SELFPAY ==
--- NOTE | 2024-05-12 09:13 | MHC.OFFVIS ---
Intake Visit Reasons: 7M Cystoscopy(Bladder Ca) Intake Note: Urology Med: Oxybutynin Antibiotic Allergy: Penicillins Blood Thinner: None Last FISH Cytology: 2021- NEGATIVE RESULT FOR THE UROVYSION FISH ASSAY Unable to send urine specimen for Cytology due to not enough urine collected. Uro G HD Disposable Cystoscope LOT: [id number] EXP: 08/06/2026 Thai Masseur Required: No Accompanied by: Self / Same As Patient Allergies Penicillins Adverse Reaction (Mild, Verified 05/12/24 09:20) hives HPI Comments Details: Mercedes is a very pleasant female. She is a patient of Dr. Bean. She is seen for the following urologic conditions - bladder cancer - renal cyst Six-month follow-up Bladder cancer follow-up NAD cystoscopy today Prior cytology normal Bladder cancer 01/23 - TURBT - high-grade T1 gemcitabine adjuvant therapy Diagnosed by Dr. Zamudio 01/23 TURBT 01/23 high-grade T1 Imaging - 01/23 CT scan with 4.5 cm right bladder sidewall lesion, 2 cm lesion in kidney with mild enhancement - 04/25 renal MRI with cysts Pathology - TURBT - 01/23 - High-Grade T1 - Cytology 10/25 NAD, 01/24 NAD, 07/28 NAD Adjuvant therapy - 02/23 gemcitabine induction 6 weeks, Boost 06/25, 02/24, 09/25 Follow-up surveillance - 04/25 Cysto Bbx - cystitis - 07/27 cysto normal - small area surface inflammation posterior back wall, 10/25 NAD, 01/24 NAD, 10/26 NAD, 04/27 NAD, 05/29 NAD Six month follow-up cystoscopy Renal cyst Initially seen on CT scan with question of bladder mass Imaging 04/25 MRI bilateral renal cyst PFSH Medical History Bladder cancer Mammary abscess Sleep apnea High cholesterol Asthma Obesity Hypertension Surgical History Hx of cystoscopy History of breast surgery H/O hernia repair H/O: hysterectomy Hx of appendectomy Family History Father Prostate cancer Myocardial infarction Mother Colon cancer Uterine cancer Social History Patient Tobacco Use Status: Former Tobacco user Tobacco use type: Cigarette Years Smoked: 20 Review of Systems Const Denies chills and Denies fever(s) Card Reports no additional complaints and Denies syncope Resp Denies cough GI Denies abdominal pain and Denies heartburn Reports as per HPI and Denies change in libido Neuro Denies syncope Psych Denies change in libido Endo Denies change in libido Physical Exam Const General: cooperative, healthy appearing, comfortable and no acute distress Orientation/consciousness: patient oriented x3 HEENT Face and sinus: Yes normal facial exam Mouth: moist mucous membranes Neck Neck: Yes normal visual inspection, Yes full ROM and Yes trachea midline Chest Chest palpation & inspection: normal inspection of the chest Resp Effort & Inspection: normal respiratory effort, able to speak in complete sentences and no respiratory distress GI Inspection: Yes normal to inspection Back/Spine/Pelvis Cervical Spine: normal cervical lordosis Thoracic/Lumbar Spine: thoracic and lumbar spine normal to inspection Skin General skin exam: no rashes or lesions noted Neuro General: patient oriented x3, gait normal, tone normal and moves all extremities Extrem General: Yes normal to inspection and Yes capillary refill normal Office Procedures Cystoscopy Consent Discussed risk and benefit or proposed procedure with the patient. Information consent for procedure given to the patient. Discussed technical aspects, risks, benefits and alternatives in full. Addressed all of the patient's questions and concerns regarding the procedure. The patient demonstrated knowledge and understanding. They wish to proceed with this procedure. Preparation The patient was prepped in the usual manner. A corrective therapy aide teacher was present and in the room. Genitalia was prepped with betadine solution in a sterile manner. Lidocaine Jelly 2% was placed into the urethra and 16Fr flexible Olympus cystoscope was inserted into the meatus after adequate lubrication. Procedure Meatus normal position Urethra normal Bladder examination with retroflexion of cystoscope Bladder Orifices normal shape and position Trigone metaplasia Bladder Capacity median Trabeculations grade 1 Cellule Formation - Diverticulum Formation - Mucosal Erythema - Bladder Tumor - [id number] DISPOSABLE SCOPE URO-G FLEXIBLE SCOPE Procedure code (CPT) selection complete Office Meds lidocaine HCl 2 % mucosal jelly in applicator Performing Provider: Vivek Zamudio MD Performing Location: [facility] [place] [facility] Administered by: Mike Rubalcava LPN on 05/12/24 09:27 Dose Route Admin Location Dispensed Lot Number Expiration Date [facility] Neurosurgery Physician 10 mL intra-urethral 10 mL nitrofurantoin monohydrate/macrocrystals 100 mg capsule Performing Provider: Vivek Zamudio MD Performing Location: [facility] [place] [facility] Administered by: Mike Rubalcava LPN on 05/12/24 09:27 Dose Route Admin Location Dispensed Lot Number Expiration Date [place] Neurosurgery Physician 100 mg PO 1 cap naproxen 500 mg tablet Performing Provider: Vivek Zamudio MD Performing Location: [facility] [place] [facility] Administered by: Mike Rubalcava LPN on 05/12/24 09:27 Dose Route Admin Location Dispensed Lot Number Expiration Date [place] Neurosurgery Physician 500 mg PO 1 tab Results AMB Urinalysis, Automated UA Leukoctes 0 Bi/uL Last Edit by CHLOÉ Hsu on 05/12/24 09:27 UA Nitrite Negative Last Edit by JOSEPH HsuA on 05/12/24 09:27 UA Urobilinogen 1 mg/dL Last Edit by CHLOÉ Hsu on 05/12/24 09:27 UA Protein 15 mg/dL Last Edit by JOSEPH HsuA on 05/12/24 09:27 UA pH 7.0 Last Edit by CHLOÉ Hsu on 05/12/24 09:27 UA Blood 10 Srikanth/uL Last Edit by CHLOÉ Hsu on 05/12/24 09:27 UA Specific [place] 1.015 Last Edit by CHLOÉ Hsu on 05/12/24 09:27 UA Ketone Negative Last Edit by CHLOÉ Hsu on 05/12/24 09:27 UA Bilirubin 0 mg/dL Last Edit by JOSEPH HsuA on 05/12/24 09:27 UA Glucose 0 mg/dL Last Edit by CHLOÉ Hsu on 05/12/24 09:27 Results Reviewed Results Reviewed: Laboratory Last Values Urine pH (Auto) 7.0 05/12/24 09:14 Specific [place] (Auto) 1.015 05/12/24 09:14 Urine Protein (Auto) 15 mg/dL 05/12/24 09:14 Glucose (UA)(Auto) 0 mg/dL 05/12/24 09:14 Urine Ketones (Auto) Negative 05/12/24 09:14 Urine Blood (Auto) 10 Srikanth/uL 05/12/24 09:14 Urine Nitrite (Auto) Negative 05/12/24 09:14 Urine Bilirubin (Auto) 0 mg/dL 05/12/24 09:14 Urine Urobilinogen (Auto) 1 mg/dL 05/12/24 09:14 Leukocyte Esterase (Auto) 0 Bi/uL 05/12/24 09:14 Assessment & Plan Assessment & Plan (1) Renal mass: Comment: Renal cyst Code(s): N28.89 - Other specified disorders of kidney and ureter Category: Medical (2) Bladder cancer: Comment: Superficial high-grade bladder cancer 01/23 - completed 2 years of intravesical therapy Code(s): C67.9 - Malignant neoplasm of bladder, unspecified Category: Medical Qualifiers: Bladder location: unspecified site Qualified Code(s): C67.9 - Malignant neoplasm of bladder, unspecified Plan Six-month follow-up Orders: Orders AMB Urinalysis Automated Today Z13.9 - Encounter for screening, unspecified AMB Cystoscopy Today C67.9 - Malignant neoplasm of bladder, unspecified US renal BI 6 Months N28.89 - Other specified disorders of kidney and ureter Patient Instructions: Imaging studies, laboratory and physical exam results were discussed and reviewed in detail. No major barriers to patient understanding were identified. An opportunity to ask questions regarding the treatment plan was provided. All questions were answered. The patient expressed understanding and agreement with the above treatment plan. The patient is aware they should contact our office by phone for worsening of their current condition or the appearance of new urologic symptoms. Compliance is encouraged with any medications and followup testing that is ordered. It is a privilege to participate in the urologic care of your patient. If you have any questions or concerns regarding treatment for the above conditions, or other urologic issues, please do not hesitate to contact me. The office telephone contact is [phone]. This note is constructed using voice recognition software. While every effort has been made to ensure accuracy press puller errors may have been included. Yours sincerely, Dr Vivek Zamudio MD, ALEJANDRA [facility] - Urology Providers of Expert, Compassionate Care for the Genitourinary System Coding Level of Care Code Est Pt Level 3 (75857) Diagnoses Renal mass N28.89 Malignant neoplasm of urinary bladder, unspecified site C67.9 Bladder location: unspecified site CPT Codes Cystoscopy - CPT: 15724-[id number] ([id number])
== END 2024-05-12 09:55 | disposition home or self-care (01) ==
LOC: HO.HUSH 09:03
PROVIDERS: PCP Internal Medicine; Visit Provider Urology
DX: N28.89 Other specified disorders of kidney and ureter (principal); C67.9 Malignant neoplasm of bladder, unspecified; Z13.9 Encounter for screening, unspecified
CPT/HCPCS: 52000; 99213

== ENCOUNTER → 2024-05-12 09:03 | Outpatient (BNVA) | payer MEDICARE, SELFPAY | PROVIDERS: PCP Internal Medicine; Visit Provider Urology | DX: N28.1 Cyst of kidney, acquired (principal); C67.9 Malignant neoplasm of bladder, unspecified; Z79.899 Other long term (current) drug therapy | CPT/HCPCS: 52000; 81003; 99212 ==

== ENCOUNTER 2024-07-08 11:13 | Outpatient (REF) | payer MEDICARE, SELFPAY ==
[2024-07-08 14:07] LABS: MANUAL DIFF FLAG NO
[2024-07-08 14:11] LABS: Basophils Absolute Auto 0.1 X10*3/uL (0.0-0.2); Basophils Percent Auto 0.5 % (0-2); Eosinophils Absolute Auto 0.2 X10*3/uL (0.0-0.4); Eosinophils Percent Auto 1.7 % (0-4); Hemoglobin 15.1 g/dl (12.0-16.0); Imm Gran Abs Auto 0.03 X10*3/uL (0.00-0.03); Imm Gran Pct Auto 0.3 % (0.0-0.4); Lymphocytes Absolute Auto 1.6 X10*3/uL (1.2-4.9); Mean Corpuscular HGB Conc 32.8 g/dl (31.0-35.0); Mean Corpuscular Volume 88.5 fL (80.0-98.0); Mean Platelet Volume 10.3 fL (9.4-12.3); Monocytes Absolute Auto 0.7 X10*3/uL (0.1-1.2); Monocytes Percent Auto 7.5 % (2-11); Neutrophils Absolute Auto 7.3 x10*3/uL (2.0-8.3); Platelet Count 291 X10*3/uL (160-400); Red Cell Distribution Width 13.3 % (11.0-16.0); White Blood Count 9.8 X10*3/uL (4.8-10.8)
[2024-07-08 14:54] LABS: Alanine Aminotransferase 16 U/L (0-31); Albumin Level 3.7 g/dL (3.5-5.0); Alkaline Phosphatase 106 U/L (39-117); Anion Gap 12 (12-20); Aspartate Amino Transferase 26 U/L (5-31); Bilirubin Total 0.6 mg/dL (0.0-1.0); Blood Urea Nitrogen 16 mg/dL (9-16); Calcium 9.1 mg/dL (8.4-10.2); Carbon Dioxide 29 mmol/L (22-29); Chloride 103 mmol/L (96-108); Cholesterol 185 mg/dL (<200); Estimated Glomerular Filt Rate > 60; Glucose Random 86 mg/dL (60-115); HDL Cholesterol 50 mg/dL (>40); LDL Cholesterol Calculated 118 mg/dL (<100); Potassium 3.9 mmol/L (3.3-5.1); Sodium 140 mmol/L (135-145); Total Protein 7.3 g/dL (6.5-8.0); Triglycerides 89 mg/dL (<150)
[2024-07-08 15:01] LABS: Thyroid Stimulating Hormone 2.15 uIU/mL (0.32-4.0)
== END 2024-07-08 11:14 | disposition home or self-care (01) ==
LOC: HO.WFDLDS 11:13
PROVIDERS: Visit Provider Internal Medicine
DX: E78.00 Pure hypercholesterolemia, unspecified (principal); H01.9 Unspecified inflammation of eyelid; I10 Essential (primary) hypertension; J30.89 Other allergic rhinitis; M81.8 Other osteoporosis without current pathological fracture
CPT/HCPCS: 36415; 80053; 80061; 84443; 85025

== ENCOUNTER 2024-10-31 09:23 | Outpatient (REF) | payer MEDICARE, SELFPAY ==
--- NOTE | ~2024-10-31 | US_ITS ---
CLINICAL HISTORY: N28.89 - Other specified disorders of kidney and ureter US retroperitoneum Comparison: None Findings: Right kidney normal size and echotexture, 10.0cm length. No hydronephrosis. Normal color flow. A 1.9 cm simple renal cortical cyst is present in the right kidney. Left kidney normal size and echotexture, 10.3 cm in length. No hydronephrosis. Normal color flow. A 1.3 cm simple renal cortical cyst is located in the lower pole of the left kidney Urinary bladder is unremarkable. Prevoid volume mL. Postvoid volume mL. Ureteral jets are visualized bilaterally Impression: Bilateral benign simple renal cortical cysts. No ultrasound evidence of renal calculi. This document has been electronically signed by: Henry Reyes MD on 11/01/2024 17:22:58
== END 2024-10-31 09:24 | disposition home or self-care (01) ==
LOC: HO.US 09:23
PROVIDERS: PCP Internal Medicine; Visit Provider Urology
DX: N28.89 Other specified disorders of kidney and ureter (principal)
CPT/HCPCS: 76775

== ENCOUNTER → 2024-10-31 09:26 | Outpatient (BNV) | payer MEDICARE, SELFPAY | PROVIDERS: PCP Internal Medicine; Visit Provider Radiology Diagnostic Radiology | DX: N28.1 Cyst of kidney, acquired (principal) | CPT/HCPCS: 76775 ==

== ENCOUNTER 2024-11-11 08:55 | Outpatient (AMB) | payer MEDICARE, SELFPAY ==
--- NOTE | 2024-11-11 08:57 | MHC.OFFVIS ---
Intake Visit Reasons: cysto/US Intake Note: Patient is present for a cystoscopy/US Urology Med: Oxybutynin Antibiotic Allergy: Penicillins Blood Thinner: None Manager Change Required: No Accompanied by: Self / Same As Patient Allergies Penicillins Adverse Reaction (Mild, Verified 11/11/24 08:58) hives HPI Comments Details: Mercedes is a very pleasant female. She is a patient of Dr. Bean. She is seen for the following urologic conditions - bladder cancer - renal cyst Six-month follow-up Bladder cancer follow-up NAD cystoscopy today Ultrasound bilateral cysts 1.9 cm Prior cytology normal Bladder cancer 01/23 - TURBT - high-grade T1 gemcitabine adjuvant therapy Diagnosed by Dr. Zamudio 01/23 TURBT 01/23 high-grade T1 Imaging - 01/23 CT scan with 4.5 cm right bladder sidewall lesion, 2 cm lesion in kidney with mild enhancement - 04/25 renal MRI with cysts Pathology - TURBT - 01/23 - High-Grade T1 - Cytology 10/25 NAD, 01/24 NAD, 07/28 NAD Adjuvant therapy - 02/23 gemcitabine induction 6 weeks, Boost 06/25, 02/24, 09/25 Follow-up surveillance - 04/25 Cysto Bbx - cystitis - 07/27 cysto normal - small area surface inflammation posterior back wall, 10/25 NAD, 01/24 NAD, 10/26 NAD, 04/27 NAD, 05/29 NAD Six month follow-up cystoscopy Renal cyst Initially seen on CT scan with question of bladder mass Imaging 04/25 MRI bilateral renal cyst - 10/28 renal ultrasound bilateral cysts PFSH Medical History Bladder cancer Mammary abscess Sleep apnea High cholesterol Asthma Obesity Hypertension Surgical History Hx of cystoscopy History of breast surgery H/O hernia repair H/O: hysterectomy Hx of appendectomy Family History Father Prostate cancer Myocardial infarction Mother Colon cancer Uterine cancer Social History Patient Tobacco Use Status: Former Tobacco user Tobacco use type: Cigarette Years Smoked: 20 Review of Systems Const Denies chills and Denies fever(s) Card Reports no additional complaints and Denies syncope Resp Denies cough GI Denies abdominal pain and Denies heartburn Reports as per HPI and Denies change in libido Neuro Denies syncope Psych Denies change in libido Endo Denies change in libido Physical Exam Const General: cooperative, healthy appearing, comfortable and no acute distress Orientation/consciousness: patient oriented x3 HEENT Face and sinus: Yes normal facial exam Mouth: moist mucous membranes Neck Neck: Yes normal visual inspection, Yes full ROM and Yes trachea midline Chest Chest palpation & inspection: normal inspection of the chest Resp Effort & Inspection: normal respiratory effort, able to speak in complete sentences and no respiratory distress GI Inspection: Yes normal to inspection Back/Spine/Pelvis Cervical Spine: normal cervical lordosis Thoracic/Lumbar Spine: thoracic and lumbar spine normal to inspection Skin General skin exam: no rashes or lesions noted Neuro General: patient oriented x3, gait normal, tone normal and moves all extremities Extrem General: Yes normal to inspection and Yes capillary refill normal Office Procedures Cystoscopy Consent Discussed risk and benefit or proposed procedure with the patient. Information consent for procedure given to the patient. Discussed technical aspects, risks, benefits and alternatives in full. Addressed all of the patient's questions and concerns regarding the procedure. The patient demonstrated knowledge and understanding. They wish to proceed with this procedure. Preparation The patient was prepped in the usual manner. A mass communications instructor was present and in the room. Genitalia was prepped with betadine solution in a sterile manner. Lidocaine Jelly 2% was placed into the urethra and 16Fr flexible Olympus cystoscope was inserted into the meatus after adequate lubrication. Procedure Meatus normal Urethra normal Bladder examination with retroflexion of cystoscope Bladder Orifices normal shape and position Trigone normal Bladder Capacity normal Trabeculations none Cellule Formation none Diverticulum Formation known Mucosal Erythema - Bladder Tumor - [id number] DISPOSABLE SCOPE URO-G FLEXIBLE SCOPE Procedure code (CPT) selection complete Office Meds lidocaine HCl 2 % mucosal jelly in applicator Performing Provider: Vivek Zamudio MD [place] [facility] [place] [facility] Administered by: Dari Hale RN on 11/11/24 09:13 Dose Route Admin Location Dispensed Lot Number Expiration Date [facility] [place] Trashman 10 mL intra-urethral 10 mL nitrofurantoin monohydrate/macrocrystals 100 mg capsule Performing Provider: Vivek Zamudio MD Performing [place] [facility] [place] [facility] Administered by: Dari Hale RN on 11/11/24 09:13 Dose Route Admin Location Dispensed Lot Number Expiration Date [facility] Trashman 100 mg PO 1 cap Assessment & Plan Assessment & Plan (1) Bladder cancer: Comment: Superficial high-grade bladder cancer 01/23 - completed 2 years of intravesical therapy Code(s): C67.9 - Malignant neoplasm of bladder, unspecified Category: Medical Qualifiers: Bladder location: unspecified site Qualified Code(s): C67.9 - Malignant neoplasm of bladder, unspecified (2) UTI (urinary tract infection), bacterial: Code(s): N39.0 - Urinary tract infection, site not specified; A49.9 - Bacterial infection, unspecified Category: Medical Plan Six-month follow-up Orders: Orders AMB Cystoscopy Today C67.9 - Malignant neoplasm of bladder, unspecified, N28.89 - Other specified disorders of kidney and ureter Patient Instructions: This note is constructed using voice recognition software. While every effort has been made to ensure accuracy petroleum supply specialist errors may have been included. Imaging studies, laboratory and physical exam results were discussed and reviewed in detail. No major barriers to patient understanding were identified. An opportunity to ask questions regarding the treatment plan was provided. All questions were answered. The patient expressed understanding and agreement with the above treatment plan. The patient is aware they should contact our office by phone for worsening of their current condition or the appearance of new urologic symptoms. Compliance is encouraged with any medications and followup testing that is ordered. It is a privilege to participate in the urologic care of your patient. If you have any questions or concerns regarding treatment for the above conditions, or other urologic issues, please do not hesitate to contact me. The office telephone contact is [phone]. Sincerely, Dr Vivek Zamudio MD, [facility] - Urology Compassionate Specialist Care for the Genitourinary System Coding Level of Care Code Est Pt Level 3 (84759) Complex EM visit Add On G2211 Diagnoses Malignant neoplasm of urinary bladder, unspecified site C67.9 Bladder location: unspecified site UTI (urinary tract infection), bacterial N39.0; A49.9 CPT Codes Cystoscopy - CPT: 60465-[id number] ([id number])
--- OUTSIDE RECORDS SUMMARY | 2024-11-11 09:09 | XMS_ITS ---
Author Organization [facility] Address [address] [place] [phone] Care Team Providers Care Logistics Officer Name Role Phone Vikas Ann-Marie Primary Care Provider Unavailab Dipesh Miranda Jr Unavailable Allergies Allergen (clinical drug ingredient) Drug/Non Drug Allergy documented on EMR Reaction Allergy Type Onset Date Status Penicillin hives Drug Allergy Active REASON FOR VISIT Patient presents today for a screening colonoscopy Medications Medication SIG (Take, Route, Frequency, Duration) Notes Start Date End Date Status MiraLax (colon prep) 17 GM/SCOOP mixed with Gatorade or Crystal Light Orally begin at 5:00 p.m. the day before the procedure for 1 day 10/08/2023 Active Vitamin D 400 UNIT Orally A ctive Valsartan-hydroCHLOROthiazi de 320-25 MG 1 tablet Orally Once a day for 30 day(s) Active Loratadine 10 MG 1 tablet Orally Once a day for 30 day(s) Active Simvastatin 10 MG 1 tablet in the even ing Orally Once a day Active Social History Alcohol Screen Question Answer Notes Did you [...] Never (0 point) Points 1 Interpretation Negative Problems Problem Type SNOMED Code ICD Code Onset Dates Problem Status W/U Status Risk Notes Problem [id number] Colon cancer screening (Z12.11) Active confirmed Problem 896167421 FH: colon cancer (Z80.0) Active confirmed Vital Signs Heart Rate 84 /min 10/08/2023 Height 64.75 in 10/08/2023 Weight 266.4 lbs 10/08/2023 BMI 44.67 kg/m2 10/08/2023 Encounters Encounter Location Date Provider Diagnosis [facility] [address] [place] [phone] 10/08/2023 Dipesh Smith Jr Colon cancer screening Z12.11 and FH: colon cancer Z80.0 Assessments Encounter Date Diagnosis (ICD Code) Assessment Notes Treatment Notes Treatment Clinical Notes Section Notes 10/08/2023 Colon cancer screening (ICD-10 - Z12.11) Colonoscopy material was printed We discussed colonoscopy today including risks and benefits of the procedure. She understands these and agrees to proceed. This will be scheduled at her convenience. 10/08/2023 FH: colon cancer (ICD-10 - Z80.0) We discussed colonoscopy today including risks and benefits of the procedure. She understands these and agrees to proceed. This will be scheduled at her convenience. Plan Of Treatment Medication Medication Name Sig Start Date Stop Date Notes MiraLax (colon prep) 17 GM/SCOOP mixed with Gatorade or Crystal Light Orally begin at 5:00 p.m. the day before the procedure for 1 day 10/08/2023 Treatment Notes Assessment Notes Colon cancer screening Colonoscopy mater ial was printed Future Test Test Name Order Date COLONOSCOPY 10/08/2023 Next Appt Details Follow Up: 1 Year, Reason: Progress Notes * MERCEDES HAYESDOB:[birth year] (78 yo F)Acc No.[id number]:10/08/2023 Progress Notes Patient:?MERCEDES HAYES Provider:?Dipesh Smith MD :1945???Age:78 Y???Sex:Female D ate:10/08/2023 Address[id number] Pcp:Ann-Marie Bean Subjective: * Chief Complaints: * ???1. Patient presents today for a screening colonoscopy. * HPI: ???New symptom(s):? Mercedes is a 78-year-old woman seen today for her preoperative colonoscopy visit. She has no complaints of rectal bleeding or change in her bowel habits. Previous colonoscopy in April of 2014 was negative for polyps. Five-year followup was recommended because of her family history of colon cancer. * ROS:?General/Constitutional:?Change in appetite?denies.?Fatigue?denies.?ENT:?Patient denies?difficulty swallowing.?Respiratory:?Patient denies?shortness of breath.?Cardiovascular:?Patient denies?chest pain.?Gastrointestinal:?Comments?See HPI for details.?Genitourinary:?Difficulty urinating?denies.?Incontinence?denies.?Musculoskeletal:?Patient denies?muscle aches.?Skin:?Patient denies?pruritis.?Neurologic:?Patient denies?low back pain.?Psychiatric:?Patient denies?mental or physical abuse.? * Medical History:?Hypertensio n, Hyperlipidemia, Asthma, Bladder cancer. * Surgical History:?appendecto my , hernia repair , hysterectomy , varicose vein stripping , blocked mammory gland 03/2019, Cystoscopy with transurethral bladder tumor resection 01/2021. * Family History:?Mother: dece ased, diagnosed with Colon cancer.?Maternal Grand Mother: , diagnosed with Colon cancer.?Maternal aunt: , diagnosed with Colon cancer.? Patient lost mother , maternal aunt and maternal grandmother to colon cancer. * Social History:?Tobacco Use:?Tobacco Use/Smoking?Are you a: nonsmoker.?Drugs/Alcohol:?Alcohol Screen?Did you have a drink containing alcohol in the past year??Yes,?How often did you have a drink containing alcohol in the past year??Monthly or less (1 point), How many drinks did you have on a typical day when you were drinking in the past year??1 or 2 drinks (0 point),?How often did you have 6 or more drinks on one occasion in the past year??Never (0 point),?Points?1,?Interpretation?Negative.?Miscellaneous:?Marital status: , . Occupation: retired for the last year and a half. * Medications:?Taking Valsarta n-hydroCHLOROthiazide 320-25 MG Tablet 1 tablet Orally Once a day, Taking Simvastatin 10 MG Tablet 1 tablet in the evening Orally Once a day, Taking Loratadine 10 MG Tablet 1 tablet Orally Once a day, Taking Vitamin D 400 UNIT Capsule Orally , Discontinued Diovan 320 MG Tablet 1 tablet Orally Once a day, Discontinued Aspir-81 81 MG Tablet Delayed Release 1 tablet Orally Once a day, Discontinued Fish Oil 1000 MG Capsule 1 capsule Orally Once a day, Discontinued MoviPrep 100 GM Solution Reconstituted as directed before colonoscopy Orally , Medication List reviewed and reconciled with the patient * Allergies:?Penicillin: hives . Objective: * Vitals:?Wt: 266.4 lbs, Ht: 6 4.75 in, BMI:44.67 Index, BP: 0.00 mm Hg, HR: 84 /min. * Examination: ???General Examination: ?GENERAL APPEARANCE:?in no acute distress.?HEAD:?normocephalic.?EYES:?sclera non-icteric.?ORAL CAVITY:?mucosa moist.?NECK/THYROID:?no lymphadenopathy.?SKIN:?anicteric.?HEART:?S1, S2 normal, no murmurs.?LUNGS:?clear to auscultation bilaterally.?CHEST:?normal shape and expansion.?ABDOMEN:?soft, nontender, nondistended, bowel sounds present, no organomegaly .?EXTREMITIES:?no clubbing, cyanosis, or edema.?PSYCH:?cognitive function intact.? Assessment: * Assessment: 1.?Colon cancer screening - Z12.11 (Primary)?2.?FH: colon cancer - Z80.0? We discussed colonoscopy tod ay including risks and benefits of the procedure. She understands these and agrees to proceed. This will be scheduled at her convenience. Plan: * Treatment: Notes: Colonoscopy material was printed?? * Preventive Medicine:? ??Counseling:?Care goal follow-up plan:?Above Normal BMI Follow-up?Giving encouragement to exercise.? * Follow Up:?1 Year * * Sign off status: Completed true * Provider:?Dipesh Smith MD Date:?0 10/08/2023 Generated for Nuvia bo/Jania/Mariano on:?11/11/2024 09:09 AM EDT History and Physical Notes * HPI (History of Present Illness) Category Sub-Category Detail Notes Category Not es New symptom(s) Mercedes is a [age]-year-old woman seen today for her preoperative colonoscopy visit. She has no complaints of rectal bleeding or change in her bowel habits. Previous colonoscopy in April of 2014 was negative for polyps. Five-year followup was recommended because of her family history of colon cancer. Examination Category Sub-Category Detail Notes Category Not es General Examination GENERAL APPEARANCE: in no acute di stress HEAD: normocephalic EYES: sclera non-icteric NECK/THYROID: no lymphadenopathy HEART: S1, S2 normal, no mu rmurs CHEST: normal shape and exp ansion LUNGS: clear to auscultatio n bilaterally ABDOMEN: soft, nontender, non distended, bowel sounds present, no organomegaly SKIN: anicteric EXTREMITIES: no clubbing, cyanosi s, or edema PSYCH: cognitive function i ntact ORAL CAVITY: mucosa moist
--- OUTSIDE RECORDS SUMMARY | 2024-11-11 09:09 | XMS_ITS ---
Author Organization [facility] Address [address] [place] [phone] Care Team Providers Care Appeals And Generalist Clerk Name Role Phone Ann-Marie Bean Primary Care Provider Unavailab Dipesh Miranda Jr REASON FOR VISIT pathology Encounters Encounter Location Date Provider Diagnosis [facility] [address] [place] [phone] 11/25/2023 Dipesh Smith Jr Plan Of Treatment No Information Progress Notes * NEHEMIAS HAYESDOB:[birth year] (78 yo F)Acc No.[id number]:11/25/2023 Patient:?NEHEMIAS HAYES :1945???Age:78 Y???Sex:Female Address[address] [place] [address] * true * Date:? Generated for Printi ng/Faxing/eTransmitting on:?11/11/2024 09:09 AM EDT
--- OUTSIDE RECORDS SUMMARY | 2024-11-11 09:09 | XMS_ITS | Patient Health Record ---
Author Organization [facility] Address [address] [place] [phone] Care Team Providers Care Clasp Machine Operator Name Role Phone Ann-Marie Bean Primary Care Provider Unavailab Dipesh Miranda Jr Unavailable [phone] Allergies Allergen (clinical drug ingredient) Drug/Non Drug Allergy documented on EMR Reaction Allergy Type Onset Date Status Penicillin hives Drug Allergy Active Results Component Value Reference Range Notes Pathology Reviewed date:11/25/2023 07:53:27 AM Interpretation: Performing Lab:[facility], [address] [place] [id number] Notes/Report: Name: Princess Hayes Age/Sex: 78/F : 1945 Unit#: [id number] Attend Dr: Dipesh Smith MD Re11/17/23 Status : [facility] Location: [facility] Disch: SPEC : [id number] RECD : 11/17/23 STATUS: [facility] NUM: [id number] MAUREEN: 11/17/[address] [facility] DR: Dipesh Smith MD ENTERED: 11/17/23 SP TYPE: Surgical OTHR DR: Ann-Marie Bean MD ORDERED: HE Stain/3, Gross Micro L4 Diagnosis Colon, 50 cm, polype ctomy: Tubular adenoma; negative for high-grade dysplasia or carcinoma. Clinical History Pre-Op Dx: Screening for malignant neoplasm of colon Post-Op Dx: Colon polyp Microscopic Description Microscopic sections reviewed. Material Received Polyp at 50 Gross Description Received in formalin labeled ?polyp at 50? are 2 diallo-pink irregular tissue fragments each measuring 0.35 cm, s ubmitted in toto in a cassette labeled A. CEDS Copies To: Ann-Marie Bean MD [address] [place] [address] [address] [place] [address] Dipesh Smith MD [address] [place] [address] [id number] [place] [id number] Signed (si gnature on file) Milton Reynolds MD 11/19/23 1220 END OF REPORT Reason For Referral No Information Medications Medication SIG (Take, Route, Frequency, Duration) [...] the procedure for 1 day 10/08/2023 Active Social History Alcohol Screen Question Answer [...] Problem Status W/U Status Risk Notes Problem [id number] Colon cancer screening (Z12.11) Active confirmed Problem [id number] FH: colon cancer (Z80.0) Active confirmed Encounters Encounter Location Date Provider Diagnosis [facility] [address] [place] [phone] 11/17/2023 Dipesh Smith Jr Encounter for screening colonoscopy Z12.11 and Colon polyps K63.[address] [facility] [address] [place] [phone] 11/25/2023 Dipesh Smith Jr Assessments Encounter Date Diagnosis (ICD Code) Assessment Notes Treatment Notes Treatment Clinical Notes Section Notes 11/17/2023 Encounter for screening colonoscopy (ICD-10 - Z12.11) 11/17/2023 Colon polyps (ICD-10 - K63.5) Plan Of Treatment Future Test Test Name Order Date COLONOSCOPY 10/08/2023 Insurance Providers Payer Name Payer Address Payer Phone Subscriber Number Group Number Insured Name Patient Relationship to Insured Coverage Start Date Coverage End Date MEDICARE OF [place] [address] [place] [id number] NEHEMIAS HAYES Self - patient is the insured [employer] ATT[employer] CLAIMS [address] [place] [address] [id number] NEHEMIAS HAYES Self - patient is the insured Medical (General) History Medical History History ICD Code Hypertension Hyperlipidemia asthma Bladder cancer Surgical History Surgery Date(Month/Year) appendectomy hernia repair hysterectomy varicose vein stripping blocked mammory gland 03/2019 Cystoscopy with transurethral bladder tu mor resection 01/2021
--- OUTSIDE RECORDS SUMMARY | 2024-11-11 09:09 | XMS_ITS ---
Author Organization [facility] Address [address] [place] [phone] Care Team Providers Care Digital Media Specialist Name Role Phone Ann-Marie Bean Primary Care Provider Unavailab Dipesh Miranda Jr REASON FOR VISIT screening Encounters Encounter Location Date Provider Diagnosis [facility] [address] [place] [phone] 11/17/2023 Dipesh Smith Jr Encounter for screening colonoscopy Z12.11 and Colon polyps K63.5 Assessments Encounter Date Diagnosis (ICD Code) Assessment Notes Treatment Notes Treatment Clinical Notes Section Notes 11/17/2023 Encounter for screening colonoscopy (ICD-10 - Z12.11) 11/17/2023 Colon polyps (ICD-10 - K63.5) Plan Of Treatment No Information Progress Notes * NEHEMIAS HAYESDOB:[birth year] (79 yo F)Acc No.[id number]:11/17/2023 COLON WITH MAC Patient:?ROBERTO HAYESRY Provider:?Dipesh Smith MD :1945???Age:78 Y???Sex:Female D ate:11/17/2023 Address[address] [id number] Pcp:Ann-Marie Bean Subjective: * Chief Complaints: * ???1. Screening. * Medical History:? Objective: * Vitals:? Assessment: * Assessment: 1.?Encounter for screening c olonoscopy - Z12.11 (Primary)???2.?Colon polyps - K63.5??? Plan: * Treatment: * Procedure Codes:?59123 COLON OSCOPY AND BIOPSY, 0529F INTRVL 3+YRS PTS CLNSCP DOCD * * The named appointment provid er may or may not be the originator of this progress note, and it is not deemed complete until electronically signed by the appointment provider. Sign off status: Pending * Provider:?Dipesh Smith MD Date:?0 11/17/2023 Generated for Nuvia bo/Jania/Jimsmitting on:?11/11/2024 09:08 AM EDT
== END 2024-11-11 09:25 | disposition home or self-care (01) ==
LOC: HO.HUSH 08:56
PROVIDERS: PCP Internal Medicine; Visit Provider Urology
DX: C67.9 Malignant neoplasm of bladder, unspecified (principal); N39.0 Urinary tract infection, site not specified; A49.9 Bacterial infection, unspecified; N28.89 Other specified disorders of kidney and ureter; Z13.9 Encounter for screening, unspecified
CPT/HCPCS: 52000; 99213

== ENCOUNTER 2024-11-11 08:55 | Outpatient (REF) | payer MEDICARE, SELFPAY ==
[2024-11-11 15:44] LABS: Urine Cytology See Pathology rpt
== END 2024-11-11 08:56 | disposition home or self-care (01) ==
LOC: HO.LAB 08:55
PROVIDERS: PCP Internal Medicine; Visit Provider Urology
DX: C67.9 Malignant neoplasm of bladder, unspecified (principal); N39.0 Urinary tract infection, site not specified; A49.9 Bacterial infection, unspecified
CPT/HCPCS: 52000; 81003; 88112; 99212

== ENCOUNTER 2025-05-16 08:57 | Outpatient (REF) | payer MEDICARE, SELFPAY | END 2025-05-16 08:58 | disposition home or self-care (01) | LOC: HO.LAB 08:57 | PROVIDERS: PCP Internal Medicine; Visit Provider Urology | DX: C67.9 Malignant neoplasm of bladder, unspecified (principal) | CPT/HCPCS: 52000; 88112; 99212 ==

== ENCOUNTER 2025-05-16 08:57 | Outpatient (AMB) | payer MEDICARE, SELFPAY ==
--- OUTSIDE RECORDS SUMMARY | 2023-11-17 03:20 | XMS_ITS ---
Author Organization [facility] Address [address] [place] [id number] Care Team Providers Care Customer Relations Coordinator Name Role Phone Ann-Marie Bean Primary Care Provider Unavailab Dipesh Miranda Jr REASON FOR VISIT screening Encounters Encounter Location Date Provider Diagnosis [facility] Outpatient [address] [place] [id number] 11/17/2023 Dipesh Smith Jr Encounter for screening colonoscopy Z12.11 and Colon polyps K63.5 Assessments Encounter Date Diagnosis (ICD Code) Assessment Notes Treatment Notes Treatment Clinical Notes Section Notes 11/17/2023 Encounter for screening colonoscopy (ICD-10 - Z12.11) 11/17/2023 Colon polyps (ICD-10 - K63.5) Plan Of Treatment No Information Progress Notes * NEHEMIAS HAYESDOB:[birth year] (80 yo F)Acc No.[id number]:11/17/2023 COLON WITH MAC Patient: NEHEMIAS PELAYO Provider: Darlene Smith MD :1945 A ge:78 Y S ex:Female Date:11/17/2023 Address[address] [place], [place] Pcp:Ann-Marie Bean Subjective: * Chief Complaints: * 1 . Screening. * Medical History: Objective: * Vitals: Assessment: * Assessment: 1. E ncounter for screening colonoscopy - Z12.11 (Primary) 2 . C olon polyps - K63.5 Plan: * Treatment: * Procedure Codes: 4 5380 COLONOSCOPY AND BIOPSY, 0529F INTRVL 3+YRS PTS CLNSCP DOCD * * The named appointment provid er may or may not be the originator of this progress note, and it is not deemed complete until electronically signed by the appointment provider. Sign off status: Pending * Provider: Darlene Smith MD Date: 0 11/17/2023 Generated for Nuvia bo/Jania/Skyleritting on: 1 07/16/2024 09:27 AM EST
--- NOTE | 2025-05-16 09:09 | MHC.OFFVIS ---
Intake Visit Reasons: 6M / Cysto Intake Note: Patient is present for a cystoscopy Urology Med:none Antibiotic Allergy: Penicillins Blood Thinner: None Pole Cutter Required: No Accompanied by: Self / Same As Patient Allergies Penicillins Adverse Reaction (Mild, Verified 05/16/25 09:12) hives HPI Comments Details: Mercedes is a very pleasant female. She is a patient of Dr. Bean. She is seen for the following urologic conditions - bladder cancer - renal cyst Six-month follow-up Bladder cancer follow-up NAD cystoscopy today Ultrasound bilateral cysts 1.9 cm Prior cytology normal Twelve month follow-up Bladder cancer 01/23 - TURBT - high-grade T1 gemcitabine adjuvant therapy Diagnosed by Dr. Zamudio 01/23 TURBT 01/23 high-grade T1 Imaging - 01/23 CT scan with 4.5 cm right bladder sidewall lesion, 2 cm lesion in kidney with mild enhancement - 04/25 renal MRI with cysts Pathology - TURBT - 01/23 - High-Grade T1 - Cytology 10/25 NAD, 01/24 NAD, 07/28 NAD Adjuvant therapy - 02/23 gemcitabine induction 6 weeks, Boost 06/25, 02/24, 09/25 Follow-up surveillance - 04/25 Cysto Bbx - cystitis - 07/27 cysto normal - small area surface inflammation posterior back wall, 10/25 NAD, 01/24 NAD, 10/26 NAD, 04/27 NAD, 05/29 NAD, 12/28 NAD, 05/30 NAD Six month follow-up cystoscopy Renal cyst Initially seen on CT scan with question of bladder mass Imaging 04/25 MRI bilateral renal cyst - 10/28 renal ultrasound bilateral cysts PFSH Medical History Bladder cancer Mammary abscess Sleep apnea High cholesterol Asthma Obesity Hypertension Surgical History Hx of cystoscopy History of breast surgery H/O hernia repair H/O: hysterectomy Hx of appendectomy Family History Father Prostate cancer Myocardial infarction Mother Colon cancer Uterine cancer Social History Patient Tobacco Use Status: Former Tobacco user Tobacco use type: Cigarette Years Smoked: 20 Review of Systems Const Denies chills and Denies fever(s) Card Reports no additional complaints and Denies syncope Resp Denies cough GI Denies abdominal pain and Denies heartburn Reports as per HPI and Denies change in libido Neuro Denies syncope Psych Denies change in libido Endo Denies change in libido Physical Exam Const General: cooperative, healthy appearing, comfortable and no acute distress Orientation/consciousness: patient oriented x3 HEENT Face and sinus: Yes normal facial exam Mouth: moist mucous membranes Neck Neck: Yes normal visual inspection, Yes full ROM and Yes trachea midline Chest Chest palpation & inspection: normal inspection of the chest Resp Effort & Inspection: normal respiratory effort, able to speak in complete sentences and no respiratory distress GI Inspection: Yes normal to inspection Back/Spine/Pelvis Cervical Spine: normal cervical lordosis Thoracic/Lumbar Spine: thoracic and lumbar spine normal to inspection Skin General skin exam: no rashes or lesions noted Neuro General: patient oriented x3, gait normal, tone normal and moves all extremities Extrem General: Yes normal to inspection and Yes capillary refill normal Office Procedures Cystoscopy Consent Discussed risk and benefit or proposed procedure with the patient. Information consent for procedure given to the patient. Discussed technical aspects, risks, benefits and alternatives in full. Addressed all of the patient's questions and concerns regarding the procedure. The patient demonstrated knowledge and understanding. They wish to proceed with this procedure. Preparation The patient was prepped in the usual manner. A design editor was present and in the room. Genitalia was prepped with betadine solution in a sterile manner. Lidocaine Jelly 2% was placed into the urethra and 16Fr flexible Olympus cystoscope was inserted into the meatus after adequate lubrication. Procedure Meatus Normal Position Urethra normal Bladder examination with retroflexion of cystoscope Bladder Orifices normal shape and position Trigone normal Bladder Capacity no Trabeculations grade 0 Cellule Formation None Diverticulum Formation None Mucosal Erythema None Bladder Tumor None 12016-[id number] DISPOSABLE SCOPE URO-G FLEXIBLE SCOPE Procedure code (CPT) selection complete Office Meds lidocaine HCl 2 % mucosal jelly in applicator Performing Provider: Vivek Zamudio MD [facility] Administered by: Dari Hale RN on 05/16/25 09:28 Dose Route Admin Location Dispensed Lot Number Expiration Date [facility] Wash Operator 10 mL intra-urethral 10 mL nitrofurantoin monohydrate/macrocrystals 100 mg capsule Performing Provider: Vivek Zamudio MD Performing Location: [facility] Administered by: Dari Hale RN on 05/16/25 09:28 Dose Route Admin Location Dispensed Lot Number Expiration Date [facility] Wash Operator 100 mg PO 1 cap Results AMB Urinalysis, Automated UA Leukoctes 0 Bi/uL Last Edit by Sonya Pelletier, [facility] on 05/16/25 09:25 UA Nitrite Negative Last Edit by Sonya Colon, [facility] on 05/16/25 09:25 UA Urobilinogen 0.2 mg/dL Last Edit by Sonya Colon, [facility] on 05/16/25 09:25 UA Protein 15 mg/dL Last Edit by Sonya Colon, [facility] on 05/16/25 09:25 UA pH 6.0 Last Edit by Sonya Colon, [facility] on 05/16/25 09:25 UA Blood 10 Srikanth/uL Last Edit by Sonya Colon, [facility] on 05/16/25 09:25 UA Specific [place] 1.020 Last Edit by Sonya Colon, [facility] on 05/16/25 09:25 UA Ketone Negative Last Edit by Sonya Colon, [facility] on 05/16/25 09:25 UA Bilirubin 1 mg/dL Last Edit by Sonya Colon, [facility] on 05/16/25 09:25 UA Glucose 0 mg/dL Last Edit by Sonya Colon, [facility] on 05/16/25 09:25 Results Reviewed Results Reviewed: Laboratory Last Values Urine pH (Auto) 6.0 05/16/25 09:25 Specific [place] (Auto) 1.020 05/16/25 09:25 Urine Protein (Auto) 15 mg/dL 05/16/25 09:25 Glucose (UA)(Auto) 0 mg/dL 05/16/25 09:25 Urine Ketones (Auto) Negative 05/16/25 09:25 Urine Blood (Auto) 10 Srikanth/uL 05/16/25 09:25 Urine Nitrite (Auto) Negative 05/16/25 09:25 Urine Bilirubin (Auto) 1 mg/dL 05/16/25 09:25 Urine Urobilinogen (Auto) 0.2 mg/dL 05/16/25 09:25 Leukocyte Esterase (Auto) 0 Bi/uL 05/16/25 09:25 Assessment & Plan Assessment & Plan (1) Bladder cancer: Comment: Superficial high-grade bladder cancer 01/23 - completed 2 years of intravesical therapy Code(s): C67.9 - Malignant neoplasm of bladder, unspecified Category: Medical Qualifiers: Bladder location: unspecified site Qualified Code(s): C67.9 - Malignant neoplasm of bladder, unspecified Plan Twelve month follow-up check cysto Orders: Orders Urine Cytology Today C67.9 - Malignant neoplasm of bladder, unspecified AMB Cystoscopy Today C67.9 - Malignant neoplasm of bladder, unspecified Patient Instructions: This note is constructed using voice recognition software. While every effort has been made to ensure accuracy internet network specialist errors may have been included. Imaging studies, laboratory and physical exam results were discussed and reviewed in detail. No major barriers to patient understanding were identified. An opportunity to ask questions regarding the treatment plan was provided. All questions were answered. The patient expressed understanding and agreement with the above treatment plan. The patient is aware they should contact our office by phone for worsening of their current condition or the appearance of new urologic symptoms. Compliance is encouraged with any medications and followup testing that is ordered. It is a privilege to participate in the urologic care of your patient. If you have any questions or concerns regarding treatment for the above conditions, or other urologic issues, please do not hesitate to contact me. The office telephone contact is [phone]. Sincerely, Dr Vivek Zamudio MD, [facility] - Urology Compassionate Specialist Care for the Genitourinary System Coding Level of Care Code Est Pt Level 3 (47143) Complex EM visit Add On G2211 Diagnoses Malignant neoplasm of urinary bladder, unspecified site C67.9 Bladder location: unspecified site CPT Codes Cystoscopy - CPT: 94127-Pvjqsrjpqh ([id number])
--- OUTSIDE RECORDS SUMMARY | 2025-05-16 09:27 | XMS_ITS | Encounter Summary ---
Author Organization [facility] Address [address] [place] [phone] Phone Care Team Providers Care Composer Teaching Artist Name Role Phone Ann-Marie Bean MD Primary Care Provider Self-Referred, Patient Unavailable Unavailab David Mckeon MD, MPH Unavailable [phone] Encounter Details Date Type Department Care Team (Late st Contact Info) Description 01/10/2021 Transcribe Orders [facility] [address] [place] [address] David Romero MD, MPH [address] [place] [id number] [email or web address] Social History Tobacco Use Types Packs/Day Years Used Date Smoking Tobacco: Never Assessed Comments Unknown Sex and Gender Information Value Date Recorded Sex Assigned at Female 01/02/2021 1:34 PM EDT Legal Sex Female 1:30 PM EDT Gender Identity Female 01/02/2021 1:34 PM EDT Sexual Orientation Straight 01/02/2021 1: 34 PM EDT documented as of this encounter Plan of Treatment Not on file documented as of this encounter Visit Diagnoses Not on filedocumented in this encounter Care Teams Composer Teaching Artist Relationship Specialty Start Date End Date Ann-Marie Bean MD [address] [place] [address] [place] [phone] PCP - General Internal Medicine 01/02/21 Self-Referred, Patient 02/28/21 David Romero MD, MPH [address] [place] [phone] [email or web address] Urology 02/28/21 documented as of this encounter Additional Source Comments The information contained in this document represents components of the legal health record. It is not the complete legal health record.[facility]
--- OUTSIDE RECORDS SUMMARY | 2025-05-16 09:28 | XMS_ITS | Clinical Summary ---
Author Organization [facility] Address [address] [place] [phone] Phone Care Team Providers Care Project Controller Name Role Phone Ann-Marie Bean MD Primary Care Provider Self-Referred, Patient Unavailable Unavailab David Mckeon MD, MPH Unavailable [phone] Social History Tobacco Use Types Packs/Day Years Used Date Smoking Tobacco: Never Assessed Education Answer Date Recorded Are you interested in more education? Not on travis e 11/01/2022 Are you concerned about learning? Not on file 11/01/2022 No 11/01/2022 No 11/01/2022 Digital Access Answer Date Recorded No 11/30/2022 No 11/30/2022 No 11/30/2022 Reliable internet access at home? Not on file 11/30/2022 Device with a working camera? Not on file Comments Unknown Sex and Gender Information Value Date Recorded Sex Assigned at Female 01/02/2021 1:34 PM EDT Legal Sex Female 1:30 PM EDT Gender Identity Female 01/02/2021 1:34 PM EDT Sexual Orientation Straight 01/02/2021 1: 34 PM EDT Plan of Treatment Health Maintenance Due Date Last Done Comments Adult Td,Tdap Booster 1945 LIPID PANEL 1945 DEPRESSION SCREENING 1959 SMOKING Hx and SMOKELESS TOBACCO SCREENING 1960 HEPATITIS C SCREENING 1965 PNEUMOCOCCAL VACCINES (50+ years) (1 of 1 - PCV) 1997 ZOSTER VACCINES (1 of 2) 1997 OSTEOPOROSIS SCREENING INITIAL (ONE-TIME) 2012 RSV VACCINE (1 - 1-dose 75+ series) 2022 INFLUENZA VACCINE (#1) 2025 , 03/15/2020, 04/13/2018, Additional history exists COVID-19 VACCINE ( - 2024- season) 2025 12/05/2020, 06/30/2020 HEPATITIS A VACCINES Aged Out No long er eligible based on patient's age to complete this topic HIB VACCINES Aged Out No longer eligi ble based on patient's age to complete this topic MENINGOCOCCAL VACCINES (ACWY) Aged Out No longer eligible based on patient's age to complete this topic MENINGOCOCCAL VACCINES (B) Aged Out N o longer eligible based on patient's age to complete this topic Medical Devices Not on file Insurance [facility] MEDEX SUPPLEMENT MEDICARE PART A & B [employer] MED[employer] SUPPLEMENT MEDICARE PART A & B [employer] MEDEX SUPPLEMENT MEDICARE PART A & B [employer] SUPPLEMENT MEDICARE PART A & B [employer] MEDEX SUPPLEMENT MEDICARE PART A & B [employer] SUPPLEMENT MEDICARE PART A & B [employer] SUPPLEMENT MEDICARE PART A & B [facility] MEDEX SUPPLEMENT MEDICARE PART A & B [employer] MEDEX SUPPLEMENT MEDICARE PART A & B Care Teams Project Controller Relationship Specialty Start Date End Date Ann-Marie Bean MD [address] [place] [address] [place] [phone] PCP - General Internal Medicine 01/02/21 Self-Referred, Patient 02/28/21 David Romero MD, MPH [address] [place] [id number] [email or web address]rology 02/28/21 Additional Source Comments The information contained in this document represents components of the legal health record. It is not the complete legal health record.[facility]
--- OUTSIDE RECORDS SUMMARY | 2025-05-16 09:28 | XMS_ITS | Patient Health Record ---
Author Organization [facility] Address [address] [place] [phone] Care Team Providers Care Reed Worker Name Role Phone Ann-Marie Bean Primary Care Provider Dipesh Singletary Jr Unavailable Allergies Allergen (clinical drug ingredient) Drug/Non Drug Allergy documented on EMR Reaction Allergy Type Onset Date Status Penicillin hives Drug Allergy Active Reason For Referral No Information Medications Medication SIG (Take, Route, Frequency, Duration) Notes Start Date End Date Status Vitamin D 400 UNIT Orally A ctive Valsartan-hydroCHLOROthiazi de 320-25 MG 1 tablet Orally Once a day; Duration: 30 day(s) Active Loratadine 10 MG 1 tablet Orally Once a day; Duration: 30 day(s) Active Simvastatin 10 MG 1 tablet in the even ing Orally Once a day Active MiraLax (colon prep) 17 GM/SCOOP mixed with Gatorade or Crystal Light Orally begin at 5:00 p.m. the day before the procedure; Duration: 1 day 10/08/2023 Active Social History Alcohol [...] Problem Status W/U Status Risk Notes Problem Colon cancer screening (777836070) Colon cancer screening (Z12.11) Active confirmed Problem Family history of malignant neoplasm of gastrointestinal tract (825045128) FH: colon cancer (Z80.0) Active confirmed Plan Of Treatment Future Test Test Name Order Date COLONOSCOPY 10/08/2023 Insurance Providers Payer Name Payer Address Payer Phone Subscriber Number Group Number Insured Name Patient Relationship to Insured Coverage Start Date Coverage End Date MEDICARE OF [place] [address] [place] [address] [id number] NEHEMIAS HAYES Self - patient is the insured [employer] ATT[employer] CLAIMS [address] [place] [address] [id number] NEHEMIAS HAYES Self - patient is the insured Medical (General) History Medical History History ICD Code Hypertension Hyperlipidemia asthma Bladder cancer Surgical History Surgery Date(Month/Year) appendectomy hernia repair hysterectomy varicose vein stripping blocked mammory gland 03/2019 Cystoscopy with transurethral bladder tu mor resection 01/2021
== END 2025-05-16 09:47 | disposition home or self-care (01) ==
LOC: HO.HUSH 08:57
PROVIDERS: PCP Internal Medicine; Visit Provider Urology
DX: C67.9 Malignant neoplasm of bladder, unspecified (principal)
CPT/HCPCS: 52000; 99213